=== PATIENT | female | born 1975 | race Caucasian/White ===

== ENCOUNTER 2021-10-02 22:36 | Inpatient (IN) | payer BC, SELFPAY ==
--- NOTE | ~2021-10-02 | XR_ITS ---
EXAMINATION: XR ERCP DATE: 10/04/2021 15:03 INDICATION: Gallstones. TECHNIQUE: 2 spot fluoroscopic images of the right upper quadrant were obtained during endoscopic ret rograde cholangiopancreatography (ERCP). Fluoroscopy exposure time was 91. COMPARISON: MRCP 10/03/2021 FINDINGS: The endoscope is in the second portion of the duodenum. There is contrast opacification of the biliary tree with an inflated balloon. No visible choledocholithiasis. There are surgical clips f rom cholecystectomy. IMPRESSION: 1. No visible choledocholithiasis. Please refer to the ERCP procedure note for additional details. Reviewed, dictated and finalized at location A. GATION PARALEGAL
--- NOTE | ~2021-10-02 | CT_ITS ---
EXAMINATION: CT abdomen pelvis w con DATE: 10/03/2021 00:41 INDICATION: Left lower quadrant pain TECHNIQUE: Computed tomography (CT) of the abdomen and pelvis was performed with 100 cc Omnipaque 350 intravenous contrast. The dose-length product was 749.41 mGy-cm. Automated exposure control and iter ative reconstruction technique were employed. COMPARISON: None. FINDINGS: Lung bases are unremarkable. No significant pleural or pericardial effusion. There is a foc al soft tissue nodule anterior to the sternum to the right, possibly enlarged lymph node, image 1. St atus post cholecystectomy with expected prominence of the bile ducts. The spleen, pancreas, adrenal g lands and kidneys are unremarkable. Normal appendix. Nonobstructive bowel gas pattern. Small amount o f free fluid in the pelvis. Colonic diverticulosis without evidence for diverticulitis. Nonobstructiv e bowel gas pattern. No abdominal lymphadenopathy. Bladder wall is mildly prominent, although underdi stended. No significant bone or joint abnormality. IMPRESSION: 1. Mild bladder wall prominence, although not well distended. Consider cystitis in the appropriate cl inical setting. 2: Focal soft tissue nodule anterior to the sternum on the right measuring 11 mm, possibly enlarged i nternal mammary lymph node. Recommend correlation with diagnostic bilateral mammogram and ultrasound. Reviewed, dictated and finalized at location D. SPORTATION AIDE IMPRESSION: 1. Mild bladder wall prominence, although not well distended. Consider cystitis in the appropriate clinical setting. 2: Focal soft tissue nodule anterior to the sternum on the right measuring 11 m m, possibly enlarged internal mammary lymph node. Recommend correlation with di agnostic bilateral mammogram and ultrasound.
--- NOTE | ~2021-10-02 | US_ITS ---
EXAMINATION: US right upper quadrant EXAM DATE: 10/03/2021 08:12 INDICATION: Elevated liver enzymes. TECHNIQUE: Multiple grayscale and Doppler images of the abdomen right upper quadrant were obtained (b y a technologist who performed the scan) and subsequently reviewed. There is no prior study for abilio casey. FINDINGS: The pancreatic head and body are normal in appearance. The pancreatic tail is not visualized. Mildl y echogenic liver parenchyma, hepatic steatosis. There is hyperechoic region measuring [address] in the liver anteriorly, which has no correlate on CT and could be fat adjacent to the falciform ligament. There is no evidence of intrahepatic biliary duct dilation. Portal venous flow was seen i n the hepatopedal, normal direction and has normal Doppler waveform. No right-sided hydronephrosis. Common bile duct measures 4 mm, which is normal. The gallbladder fossa is unremarkable. IMPRESSION: 1. Mild hepatic steatosis. Reviewed, dictated and finalized at location A. ELAND MANAGEMENT SPECIALIST IMPRESSION: 1. Mild hepatic steatosis.
--- NOTE | ~2021-10-02 | MR_ITS ---
EXAMINATION: MR MRCP wo/w con/w 3D wo ind DATE: 10/03/2021 17:16 INDICATION: Abnormal liver function tests. TECHNIQUE: Magnetic resonance imaging (MRI) of the abdomen was performed without and with 16 mL Multi Inés intravenous contrast. Sequences included coronal T2-weighted FS FSE, coronal T2-weighted FSE, a xial T1-weighted LAVA, coronal FS FIESTA, axial dual-echo T1-weighted SPGR, coronal lava-FLEX, sagitt al T2-weighted FSE, axial T2-weighted FSE, and axial DWI. Thick-slab T2-weighted FSE images were obta ined for magnetic resonance cholangiopancreatography (MRCP). Maximum intensity projection 3-D reconst ructions of the volumetric data were created by the technologist. Postcontrast sequences included cor onal LAVA-flex and time course of axial T1-weighted LAVA. COMPARISON: Abdomen ultrasound 10/03/2021, CT abdomen and pelvis 10/03/2021 FINDINGS: ABDOMEN MRI: There is diffuse hepatic steatosis. The gallbladder is absent. There is fat stranding an d fluid around the pancreas, consistent with pancreatitis. There is enhancement of the pancreas throu ghout. The adrenal glands and kidneys are normal. There are no dilated loops of bowel. There is a sma ll volume of ascites. ABDOMEN MRCP: The common duct is normal and measures 8 mm. No choledocholithiasis. IMPRESSION: 1. Acute interstitial pancreatitis. 2. No choledocholithiasis. 3. Diffuse hepatic steatosis. Reviewed, dictated and finalized at location A. RUCTOR BUSINESS EDUCATION
[2021-10-02 22:40] VITALS: BP 137/87; PULSE 80; RESP 18; TEMP 36.4; O2SAT 100
[2021-10-02] MEDS: KETOROLAC 30 MG/ML VIAL (*BKC) IV PUSH (23:38)
[2021-10-02] MEDS: ONDANSETRON INJ 4 MG/2 ML VIAL IV PUSH (23:39)
--- NOTE | 2021-10-02 23:40 | ED.GENADULT ---
HPI - General Adult General Chief complaint: Abdominal Pain Stated complaint: chest pain Time Seen by Provider: 10/02/21 23:12 History of Present Illness HPI narrative: Patient is a 46-year-old male who presents the emergency department with chief complaint of epigastric pain. Patient reports he had prior history of a cholecystectomy reports he started having pain radiating to her back reports is not improved by anything and reports that it is not worsened by anything. Related Data Allergies Allergy/AdvReac Type Severity Reaction Status Date / Time clindamycin AdvReac Unconscious Verified 10/02/21 22:45 Review of Systems Review of Systems: A 10 system review of systems was completed on the patient and is negative except for what is stated in the HPI. Nursing and ancillary documentation was reviewed. Exam Narrative: GENERAL: Well-appearing, well-nourished, and in no acute distress. HEAD: Normocephalic, atraumatic. EYES: PERRLA and EOMI. ENT: Nares clear, no rhinorrhea or epistaxis. Mucous membranes moist. NECK: Supple. CHEST: Clear to auscultation. No respiratory distress. HEART: Regular rate and rhythm. No murmur heard. Normal peripheral pulses. ABDOMEN: Soft, nontender, nondistended, normal active bowel sounds. EXTREMITIES: Normal range of motion. No edema. SKIN: Warm, dry, no rash. NEURO: No focal deficits. Alert and oriented x3. PSYCH: Normal mood and affect. Course Vital Signs Vital signs: Vital Signs Temperature 36.4 C L 10/02/21 22:40 Pulse Rate 80 10/02/21 22:40 Respiratory Rate 18 10/02/21 22:40 Blood Pressure 137/87 10/02/21 22:40 Pulse Oximetry 100 10/02/21 22:40 Temperature 36.4 C L 10/02/21 22:40 Pulse Rate 80 10/02/21 22:40 Respiratory Rate 18 10/02/21 22:40 Blood Pressure 137/87 10/02/21 22:40 Pulse Oximetry 100 10/02/21 22:40 Medical Decision Making Vital Signs Vital Signs: Vital Signs Temperature 36.4 C L 10/02/21 22:40 Pulse Rate 80 10/02/21 22:40 Respiratory Rate 18 10/02/21 22:40 Blood Pressure 137/87 10/02/21 22:40 Pulse Oximetry 100 10/02/21 22:40 Temperature 36.4 C L 10/02/21 22:40 Pulse Rate 80 10/02/21 22:40 Respiratory Rate 18 10/02/21 22:40 Blood Pressure 137/87 10/02/21 22:40 Pulse Oximetry 100 10/02/21 22:40 Lab Data Result diagrams: 10/03/21 00:30 10/02/21 23:37 Labs: Lab Results 10/02/21 10/02/21 10/02/21 Range/Units 23:37 23:37 23:49 WBC (4.5-10.0) K/mm3 RBC (4.2-5.4) M/mm3 Hgb (12.0-15.0) g/dL Hct (37.0-47.0) % MCV (80-100) fl MCH (26-34) pg MCHC (32-36) g/dl RDW (11.5-14.5) % Plt Count (150-375) k/mm3 MPV (7.4-10.4) fl Immature Gran % (Auto) (0-0.5) % Neut % (Auto) (45.5-73.1) % Lymph % (Auto) (18.3-44.2) % [place] % (Auto) (2.6-8.5) % Eos % (Auto) (0-4.4) % Baso % (Auto) (0.2-1.2) % Lymph # (Auto) (0.9-3.2) K/mm3 [place] # (Auto) (0.1-0.6) K/mm3 Eos # (Auto) (0-0.3) K/mm3 Baso # (Auto) (0.0-0.1) K/mm3 Abs Immat Gran (auto) (0.00-0.031) K/mm3 Absolute Neuts (auto) (1.3-6.7) K/mm3 Absolute Nucleated RBC (0.0-0.012) K/mm3 Nucleated RBC % (0.0-0.2) % Sodium 136 L (137-145) mmol/L Potassium 4.0 (3.4-5.0) mmol/L Chloride 101 (98-107) mmol/L Carbon Dioxide 25 (22-30) mmol/L Anion Gap 10 (8-16) mmol/L BUN 10 (7-17) mg/dL Creatinine 0.70 (0.7-1.0) mg/dL Estim Creat Clear Calc 90 ml/min Estimated GFR > 60 (59 - ) Glucose 111 H (65-110) mg/dL Lactic Acid 1.0 (0.7-2.1) mmol/L Calcium 9.7 (8.4-10.2) mg/dL Total Bilirubin 1.9 H (0.2-1.3) mg/dL AST 530 H (14-36) U/L ALT 436 H (4-35) U/L Alkaline Phosphatase 161 H (38-126) U/L Total Protein 8.0 (6.3-8.2) g/dL Albumin 4.7 (3.5-5.1) g/dL Lipase 5641 H (23-300) U/L Urine Color Yellow (Yellow) Urine Tiffanie
[2021-10-02] MEDS: SODIUM CHLORIDE 0.9% IV 1,000 ML 999 ML IV CONT (23:43)
[2021-10-03] VITALS (7 sets, daily range): BP systolic 112–134; BP diastolic 61–71; PULSE 71–93; RESP 14–18; TEMP 36.6–37.1; O2SAT 96–100; BMI 31.2; BMI 31.4
[2021-10-03 00:14] LABS: Alanine Aminotransferase 436 U/L (4-35); Albumin Level 4.7 g/dL (3.5-5.1); Alkaline Phosphatase 161 U/L (38-126); Anion Gap 10 mmol/L (8-16); Aspartate Amino Transferase 530 U/L (14-36); Bilirubin,Total 1.9 mg/dL (0.2-1.3); Blood Urea Nitrogen 10 mg/dL (7-17); Calcium 9.7 mg/dL (8.4-10.2); Carbon Dioxide 25 mmol/L (22-30); Chloride 101 mmol/L (98-107); Estimated CRCL calculation 90 ml/min; Estimated Glomerular Filt Rate > 60; Glucose 111 mg/dL (65-110); Sodium 136 mmol/L (137-145)
[2021-10-03 00:32] LABS: Lipase 5641 U/L (23-300)
[2021-10-03 00:39] LABS: Basophils Percent Auto 0.4 % (0.2-1.2); Eosinophils Absolute Auto 0.1 K/mm3 (0-0.3); Eosinophils Percent Auto 0.7 % (0-4.4); Hematocrit 36.8 % (37.0-47.0); Hemoglobin 12.7 g/dL (12.0-15.0); Immature Granulocyte Absolute 0.01 K/mm3 (0.00-0.031); Immature Granulocyte Percent A 0.1 % (0-0.5); Lymphocytes Absolute Auto 1.04 K/mm3 (0.9-3.2); Lymphocytes Percent Auto 14.1 % (18.3-44.2); Mean Corpuscular HGB Conc 34.5 g/dl (32-36); Mean Corpuscular Hemoglobin 30.2 pg (26-34); Mean Corpuscular Volume 87.4 fl (80-100); Mean Platelet Volume 9.6 fl (7.4-10.4); Monocytes Absolute Auto 0.6 K/mm3 (0.1-0.6); Monocytes Percent Auto 8.7 % (2.6-8.5); Neutrophils Absolute Auto 5.6 K/mm3 (1.3-6.7); Platelet Count Result 275 k/mm3 (150-375); Red Blood Count 4.21 M/mm3 (4.2-5.4); Red Cell Distribution Width 12.3 % (11.5-14.5); White Blood Count 7.4 K/mm3 (4.5-10.0)
[2021-10-03 00:48] LABS: Add Urine Microscopic? YES; Appearance Urine Clear (Clear); Bacteria Urine Trace /hpf; Bilirubin Urine Negative (Negative); Blood Urine Negative (Negative); Color Urine Yellow (Yellow); Glucose Urine UA Negative (Negative); Ketones Urine Negative (Negative); Leukocyte Esterase Ur Negative LEU/UL (Negative); Mucus Urine Rare /lpf; Nitrate Urine Negative (Negative); Protein Urine Negative (Negative); RBC Urine 0-2 /hpf (0-2); Specific Grav Ur 1.008 (1.001-1.035); Squamous Epithelial Cell Urine Few /hpf (Few); WBC Urine 0-3 /hpf
[2021-10-03] MEDS: MORPHINE SULFATE (*CRX) 4 MG/ML INJ IV PUSH ×3 (02:34→16:06)
[2021-10-03] MEDS: SODIUM CHLORIDE 0.9% IV 1,000 ML 125 ML IV CONT ×3 (02:35→16:12)
[2021-10-03 07:29] LABS: Alanine Aminotransferase 623 U/L (4-35); Albumin Level 4.2 g/dL (3.5-5.1); Alkaline Phosphatase 151 U/L (38-126); Aspartate Amino Transferase 700 U/L (14-36); Bilirubin Direct 0.7 mg/dL (0-0.3); Bilirubin,Total 2.9 mg/dL (0.2-1.3)
[2021-10-03] MEDS: ONDANSETRON INJ 4 MG/2 ML VIAL IV PUSH (07:45)
--- NOTE | 2021-10-03 08:00 | PM.IMHP ---
H&P: HPI History of Present Illness Date/Time: 10/03/21 0800 Chief Complaint: Abdominal pain accompanied with nausea vomiting Narrative: Patient is a 46-year-old female with a past medical history of cholecystectomy, gallstones, pancreatitis who presented the ED with severe epigastric pain. Patient stated that it started on Saturday after she had some Armenian food. Patient thought that it was acid reflux and she took Tums however did not have any relief. On Saturday she became weak and a little bit. Her meal on Saturday consisted of toast with chicken soup and lots of water. Saturday she called her PCP that they will be able to get her in until if her GI would not be able to get her in until October 26. She came to ED because her epigastric pain was severe and radiating throughout the abdomen. Patient stated that nothing was helping her at this time. She currently rates her pain as 7/10. She was actively vomiting as I walked into the room. Patient stated that she had her gallbladder taken out 3 years ago and she has been battling this ever since. She did say that she has had pancreatitis in the past however it never hurt like this so she probably uneven when she had pancreatitis at that time. Patient had her last meal at 6:00 p.m. yesterday which was vegetables based. Patient stated that it was hard to breathe however she said the poly from the vomiting. She denies any urinary dysfunction along with chest pain, she wets, fevers, chills, lightheadedness, weakness, dizziness, fatigue, numbness and tingling. Patient does report having diarrhea for the last [address] showed Mild bladder wall prominence, although not well distended. Consider cystitis in the appropriate clinical setting. Focal soft tissue nodule anterior to the sternum on the right measuring 11 mm, possibly enlarged internal mammary lymph node. Recommend correlation with diagnostic bilateral mammogram and ultrasound. Liver enzymes are elevated 700/623 and total bilirubin is 2.9. lipase is also elevated at 5641. Patient is being admitted to the hospitalist service, inpatient status. Review of Systems Review of Systems: All systems reviewed & are unremarkable except as noted in HPI and below PMFSH Past Medical History Medical History Gall stone GERD (gastroesophageal reflux disease) Pancreatitis Surgical History Surgical History S/P cholecystectomy Family History Family History Mother Lung cancer Other Diabetes mellitus nieces Social History Social History Social History: Patient lives at home with her and 1 child who is a girl. Patient works for [employer] and has 3 dogs as pets. Patient's graham will be her surrogate. Patient would like to be a full code. Smoking status: Current some day smoker Tobacco type: e-cigarettes/vaping Second hand tobacco smoke exposure: No Alcohol intake: current Drinks per week: 2 Alcohol use details: Beer with friends socially Substance use: never Substance use type: does not use Living arrangements: with family Occupation/Education: occupation Additional occupation/education comments: [employer] Gender identity (if verbalized by the patient): Female Sexual Orientation (if Verbalized by the Patient): Straight or Heterosexual Spiritual care concerns: No Agree to blood products: Yes Meds Home Medications and Allergies Home Medications Medication Instructions Recorded Confirmed Type No Home Medications 10/03/21 10/03/21 History Allergies Allergy/AdvReac Type Severity Reaction Status Date / Time clindamycin AdvReac Unconscious Verified 10/02/21 22:45 Vital Signs Vital Signs - 24 hr 10/02/21 22:40 10/03/21 03:34 1
[2021-10-03 08:22] LABS: Glucose Point of Care 148 mg/dl (65-105)
[2021-10-03] MEDS: PANTOPRAZOLE SODIUM IV 40 MG VIAL IV PUSH (08:33)
--- NOTE | 2021-10-03 11:04 | PC.NURSE ---
On 10/03/21, the student, Adriane Vail[ ], provided care and completed [facility] documentation on this patient. I have reviewed the student's documentation and agree with the findings.
--- NOTE | 2021-10-03 14:31 | WPDGICN ---
Assessment and Plan Assessment and plan (1) Acute pancreatitis: Qualifiers: Acute pancreatitis complication: unspecified Pancreatitis type: unspecified pancreatitis type Qualified Code(s): K85.90 - Acute pancreatitis without necrosis or infection, unspecified Code(s): K85.90 - Acute pancreatitis without necrosis or infection, unspecified Status: Acute Assessment and Plan: given her history of gallstones on prior common bile duct stones, I suspect that she has common bile duct stones and/or sludge at the minimum causing gallstone pancreatitis. We discussed ERCP appear explained the procedure. Explain the possible complications such as bleeding or perforation or worsening pancreatitis or even the possibility that surgery could be necessary . I was going to try to get her procedure scheduled for today. I was just notified that anesthesia does not have the staff to do the procedure today (2) Transaminitis: Code(s): R74.01 - Elevation of levels of liver transaminase levels Status: Acute Assessment and Plan: I am fairly certain that these levels are due to choledocholithiasis. I would not explain this level of enzyme elevation with hepatic steatosis, and given the elevated bilirubin, she almost certainly has common bile duct calculi. GI Consult Note Consult date/time: 10/03/21 14:31 HPI: Ty Arriola is a 46 year old female who was admitted yesterday with severe abdominal pain and found to have pancreatitis. Her lipase was over 5000. She states she had pancreatitis about 3 years ago at the time that she was found have gallstones. His far she recalls she 1st was found to have gallstones and was told that she had some her bile duct. She believes that she had an ERCP and stones were removed. She also had a cholecystectomy. After that she was told that some of the stones could not be removed and that she may well have another attack. She does not recall having a stent placed. There is no history of liver disease. The family history is relevant only in that her father had his gallbladder removed. She does not drink alcohol regularly. Her alkaline phosphatase was elevated 161 her AST which was 530 yesterday is now 700. Likewise her bilirubin has increased from 1.9-2.9. CT scan of the abdomen does not show biliary dilatation or other significant abnormalities. An MRCP was ordered but cannot be done because the MRI machine is broken Review of Systems Review of Systems: All systems reviewed & are unremarkable except as noted in HPI and below PMFSH Past Medical History Medical History Gall stone GERD (gastroesophageal reflux disease) Pancreatitis Surgical History Surgical History S/P cholecystectomy Family History Family History Mother Lung cancer Other Diabetes mellitus nieces Social History Social History Social History: Patient lives at home with her and 1 child who is a girl. Patient works for [employer] and has 3 dogs as pets. Patient's graham will be her surrogate. Patient would like to be a full code. Smoking status: Current some day smoker Tobacco type: e-cigarettes/vaping Second hand tobacco smoke exposure: No Alcohol intake: current Drinks per week: 2 Alcohol use details: Beer with friends socially Substance use: never Substance use type: does not use Living arrangements: with family Occupation/Education: occupation Additional occupation/education comments: [employer] Gender identity (if verbalized by the patient): Female Sexual Orientation (if Verbalized by the Patient): Straight or Heterosexual Spiritual care concerns: No Agree to blood products: Yes Meds Home Medicatio
--- NOTE | 2021-10-03 15:33 | PC.NURSE ---
On 10/03/21, the student, [Didi Taylor ], provided care and completed [employer] documentation on this patient. I have reviewed the student's documentation and agree with the findings.
[2021-10-03 15:45] LABS: INR 0.9; Prothrombin Time 12.2 Seconds (11.1-14.7)
[2021-10-04] VITALS (12 sets, daily range): BP systolic 105–153; BP diastolic 57–100; PULSE 77–102; RESP 16–33; TEMP 36.5–37.3; O2SAT 95–100
[2021-10-04] MEDS: SODIUM CHLORIDE 0.9% IV 1,000 ML 125 ML IV CONT ×2 (03:13→17:34)
[2021-10-04 06:32] LABS: Basophils Percent Auto 0.2 % (0.2-1.2); Eosinophils Absolute Auto 0.1 K/mm3 (0-0.3); Eosinophils Percent Auto 1.1 % (0-4.4); Hematocrit 35.8 % (37.0-47.0); Hemoglobin 11.9 g/dL (12.0-15.0); Immature Granulocyte Absolute 0.02 K/mm3 (0.00-0.031); Immature Granulocyte Percent A 0.2 % (0-0.5); Lymphocytes Absolute Auto 0.83 K/mm3 (0.9-3.2); Lymphocytes Percent Auto 9.1 % (18.3-44.2); Mean Corpuscular HGB Conc 33.2 g/dl (32-36); Mean Corpuscular Hemoglobin 29.8 pg (26-34); Mean Corpuscular Volume 89.5 fl (80-100); Mean Platelet Volume 9.5 fl (7.4-10.4); Monocytes Absolute Auto 0.5 K/mm3 (0.1-0.6); Monocytes Percent Auto 5.5 % (2.6-8.5); Neutrophils Absolute Auto 7.6 K/mm3 (1.3-6.7); Neutrophils Percent Auto 83.9 % (45.5-73.1); Platelet Count Result 269 k/mm3 (150-375); Red Cell Distribution Width 12.7 % (11.5-14.5); White Blood Count 9.1 K/mm3 (4.5-10.0)
[2021-10-04 07:00] LABS: Alanine Aminotransferase 431 U/L (4-35); Albumin Level 3.9 g/dL (3.5-5.1); Alkaline Phosphatase 133 U/L (38-126); Anion Gap 7 mmol/L (8-16); Aspartate Amino Transferase 176 U/L (14-36); Blood Urea Nitrogen 4 mg/dL (7-17); Calcium 8.3 mg/dL (8.4-10.2); Carbon Dioxide 22 mmol/L (22-30); Chloride 105 mmol/L (98-107); Estimated CRCL calculation 105 ml/min; Estimated Glomerular Filt Rate > 60; Glucose 101 mg/dL (65-110); Magnesium 1.8 mg/dL (1.6-2.3); Potassium 3.6 mmol/L (3.4-5.0); Sodium 134 mmol/L (137-145)
[2021-10-04 07:09] LABS: Lipase 2030 U/L (23-300)
[2021-10-04 07:43] LABS: Hepatitis B Surface Antigen Negative (Negative)
[2021-10-04 07:48] LABS: HAV RESULT Negative (Negative); Hepatitis B Core IgM Result Negative (Negative)
[2021-10-04 08:00] LABS: Hepatitis C Virus Antibody Negative (Negative)
--- NOTE | 2021-10-04 08:14 | WPDANESEPPF ---
Anes - Initial Pre Proc Eval Procedure: Operation Date: 10/04/21 14:00 Proposed Procedures p Endoscopic Retro Cholangiopancreatogram - Brendan Faustin MD Date/Time: 10/04/21 08:14 Surgeon: Ko Olmedo MD Pre Op Diagnosis: Acute Pancreatitis Patient Data Age: 46 Gender: F Height: 1.63 m Weight: 83 kg Last Vital Signs Temp 37.3 C 10/04/21 05:49 Pulse 101 H 10/04/21 05:49 Resp 18 10/04/21 05:49 BP 113/61 10/04/21 05:49 Pulse Ox 95 10/04/21 05:49 Allergies Allergy/AdvReac Type Severity Reaction Status Date / Time clindamycin AdvReac Unconscious Verified 10/04/21 13:05 Home Medications Medication Instructions Recorded Confirmed Type No Home Medications 10/03/21 10/03/21 History Laboratory Tests 10/03/21 10/03/21 10/03/21 07:53 15:10 15:13 WBC RBC Hgb Hct MCV MCH MCHC RDW Plt Count MPV Immature Gran % (Auto) Neut % (Auto) Lymph % (Auto) [place] % (Auto) Eos % (Auto) Baso % (Auto) Lymph # (Auto) [place] # (Auto) Eos # (Auto) Baso # (Auto) Abs Immat Gran (auto) Absolute Neuts (auto) Absolute Nucleated RBC Nucleated RBC % PT 12.2 Seconds Seconds (11.1-14.7) INR 0.9 Sodium Potassium Chloride Carbon Dioxide Anion Gap BUN Creatinine Estim Creat Clear Calc Estimated GFR Glucose POC Capillary Glucose 148 mg/dl H mg/dl (65-105) Calcium Magnesium Total Bilirubin Direct Bilirubin AST ALT Alkaline Phosphatase Total Protein Albumin Lipase Hepatitis A IgM Ab Negative (Negative) Hep Bs Antigen Negative (Negative) Hep B Core IgM Ab Negative (Negative) Hepatitis C Ab Screen Negative (Negative) 10/04/21 10/04/21 05:56 05:56 WBC 9.1 K/mm3 K/mm3 (4.5-10.0) RBC 4.00 M/mm3 L M/mm3 (4.2-5.4) Hgb 11.9 g/dL L g/dL (12.0-15.0) Hct 35.8 % L % (37.0-47.0) MCV 89.5 fl fl (80-100) MCH 29.8 pg pg (26-34) MCHC 33.2 g/dl g/dl (32-36) RDW 12.7 % % (11.5-14.5) Plt Count 269 k/mm3 k/mm3 (150-375) MPV 9.5 fl fl (7.4-10.4) Immature Gran % (Auto) 0.2 % % (0-0.5) Neut % (Auto) 83.9 % H % (45.5-73.1) Lymph % (Auto) 9.1 % L % (18.3-44.2) [place] % (Auto) 5.5 % % (2.6-8.5) Eos % (Auto) 1.1 % % (0-4.4) Baso % (Auto) 0.2 % % (0.2-1.2) Lymph # (Auto) 0.83 K/mm3 L K/mm3 (0.9-3.2) [place] # (Auto) 0.5 K/mm3 K/mm3 (0.1-0.6) Eos # (Auto) 0.1 K/mm3 K/mm3 (0-0.3) Baso # (Auto) 0.0 K/mm3 K/mm3 (0.0-0.1) Abs Immat Gran (auto) 0.02 K/mm3 K/mm3 (0.00-0.031) Absolute Neuts (auto) 7.6 K/mm3 H K/mm3 (1.3-6.7) Absolute Nucleated RBC 0.0 K/mm3 K/mm3 (0.0-0.012) Nucleated RBC % 0.0 % % (0.0-0.2) PT INR Sodium 134 mmol/L L mmol/L (137-145) Potassium 3.6 mmol/L mmol/L (3.4-5.0) Chloride 105 mmol/L mmol/L (98-107) Carbon Dioxide 22 mmol/L mmol/L (22-30) Anion Gap 7 mmol/L L mmol/L (8-16) BUN 4 mg/dL L D mg/dL (7-17) Creatinine 0.60 mg/dL L mg/dL (0.7-1.0) Estim Creat Clear Calc 105 ml/min ml/min Estimated GFR > 60 (59 - ) Glucose 101 mg/dL mg/dL (65-110) POC Capillary Glucose Calcium 8.3 mg/dL L mg/dL (8.4-10.2) Magnesium 1.8 mg/dL mg/dL (1.6-2.3) Total Bilirubin 2.0 m
--- NOTE | 2021-10-04 10:00 | PM.IMPN ---
Progress Note: A&P Assessment and Plan (1) Acute pancreatitis: Qualifiers: Acute pancreatitis complication: unspecified Pancreatitis type: unspecified pancreatitis type Qualified Code(s): K85.90 - Acute pancreatitis without necrosis or infection, unspecified Code(s): K85.90 - Acute pancreatitis without necrosis or infection, unspecified Status: Acute Assessment and Plan: Lipase trending down [address] shows normal pancreas NPO status at this time Morphine IV p.r.n. for pain Zofran 4 mg IV q.4 for nausea vomiting Sodium chloride 125 mL/hour Protonix 40 mg IV b.i.d. Will get a GI consult MRCP showed acute interstitial pancreatitis, no choledocholithiasis, diffuse hepatic steatosis ERCP scheduled for today (2) Transaminitis: Code(s): R74.01 - Elevation of levels of liver transaminase levels Status: Acute Assessment and Plan: Liver enzymes elevated AST/ALT 700/623 alk phos 151 on admission Today AST/ALT 176/431 alk phos 133 Right upper quadrant ultrasound mild hepatic steatosis hepatitis panel negative GI consult thank you for your recommendations Trend labs Labs in the a.m. Subjective Date/time seen: 10/04/21 10:00 Interval history: Date/Time: 10/03/21 0800 Narrative: Patient is a 46-year-old female with a past medical history of cholecystectomy, gallstones, pancreatitis who presented the ED with severe epigastric pain. Patient stated that it started on Saturday after she had some [place] food. Patient thought that it was acid reflux and she took Tums however did not have any relief. On Saturday she became weak and a little bit. Her meal on Saturday consisted of toast with chicken soup and lots of water. Saturday she called her PCP that they will be able to get her in until if her GI would not be able to get her in until October 26. She came to ED because her epigastric pain was severe and radiating throughout the abdomen. Patient stated that nothing was helping her at this time. She currently rates her pain as 7/10. She was actively vomiting as I walked into the room. Patient stated that she had her gallbladder taken out 3 years ago and she has been battling this ever since. She did say that she has had pancreatitis in the past however it never hurt like this so she probably uneven when she had pancreatitis at that time. Patient had her last meal at 6:00 p.m. yesterday which was vegetables based. Patient stated that it was hard to breathe however she said the poly from the vomiting. She denies any urinary dysfunction along with chest pain, she wets, fevers, chills, lightheadedness, weakness, dizziness, fatigue, numbness and tingling. Patient does report having diarrhea for the last [address] showed Mild bladder wall prominence, although not well distended. Consider cystitis in the appropriate clinical setting. Focal soft tissue nodule anterior to the sternum on the right measuring 11 mm, possibly enlarged internal mammary lymph node. Recommend correlation with diagnostic bilateral mammogram and ultrasound. Liver enzymes are elevated 700/623 and total bilirubin is 2.9. lipase is also elevated at 5641. Date/Time: 10/04/21 1000 She is feeling a lot better today. She stated that her abdomen is not as sore as it was. She currently rates her pain a 5/10/. She stated that the pain is mostly epigastric but then does disperse and creates generalized abdominal pain. She did state that she has not had any pain medications since yesterday. Educated her about her diet and she requested to see the chemical research engineer. She denies chest pain, shortness of breath, nausea, vomiting, sweats, fevers, chills, abdominal pain, urinary dysfunction. She also stated that her anxiety is better. Review of Systems Review of Systems: All systems reviewed & are unremarkable except as noted in HPI and below Exam Const: General: cooperative, well devel
[2021-10-04] MEDS: PANTOPRAZOLE SODIUM IV 40 MG VIAL IV PUSH (10:35)
[2021-10-04] MEDS: INDOMETHACIN 50 MG SUPP.RECT 100 MG RECTAL (14:11)
[2021-10-04] MEDS: LACTATED RINGERS 1,000 ML 150 ML IV CONT (15:06)
[2021-10-05 04:34] VITALS: BP 108/67; PULSE 104; RESP 18; TEMP 37.2; O2SAT 95
[2021-10-05] MEDS: SODIUM CHLORIDE 0.9% IV 1,000 ML 125 ML IV CONT (06:36)
[2021-10-05 06:57] LABS: Basophils Percent Auto 0.5 % (0.2-1.2); Eosinophils Absolute Auto 0.1 K/mm3 (0-0.3); Eosinophils Percent Auto 1.6 % (0-4.4); Hematocrit 31.6 % (37.0-47.0); Hemoglobin 10.6 g/dL (12.0-15.0); Immature Granulocyte Absolute 0.02 K/mm3 (0.00-0.031); Immature Granulocyte Percent A 0.2 % (0-0.5); Lymphocytes Absolute Auto 1.23 K/mm3 (0.9-3.2); Lymphocytes Percent Auto 14.7 % (18.3-44.2); Mean Corpuscular HGB Conc 33.5 g/dl (32-36); Mean Corpuscular Hemoglobin 29.4 pg (26-34); Mean Corpuscular Volume 87.5 fl (80-100); Mean Platelet Volume 9.3 fl (7.4-10.4); Monocytes Absolute Auto 0.6 K/mm3 (0.1-0.6); Monocytes Percent Auto 7.4 % (2.6-8.5); Neutrophils Absolute Auto 6.3 K/mm3 (1.3-6.7); Neutrophils Percent Auto 75.6 % (45.5-73.1); Platelet Count Result 217 k/mm3 (150-375); Red Blood Count 3.61 M/mm3 (4.2-5.4); Red Cell Distribution Width 12.5 % (11.5-14.5); White Blood Count 8.4 K/mm3 (4.5-10.0)
[2021-10-05 07:22] LABS: Alanine Aminotransferase 251 U/L (4-35); Albumin Level 3.5 g/dL (3.5-5.1); Alkaline Phosphatase 108 U/L (38-126); Anion Gap 6 mmol/L (8-16); Aspartate Amino Transferase 62 U/L (14-36); Bilirubin,Total 0.8 mg/dL (0.2-1.3); Blood Urea Nitrogen 3 mg/dL (7-17); Calcium 8.1 mg/dL (8.4-10.2); Carbon Dioxide 25 mmol/L (22-30); Chloride 105 mmol/L (98-107); Estimated CRCL calculation 105 ml/min; Estimated Glomerular Filt Rate > 60; Glucose 96 mg/dL (65-110); Lipase 182 U/L (23-300); Potassium 3.5 mmol/L (3.4-5.0); Sodium 136 mmol/L (137-145)
--- NOTE | 2021-10-05 07:23 | WPDGIPROGNO ---
Progress Note: A&P Assessment and Plan (1) Acute pancreatitis: Qualifiers: Acute pancreatitis complication: unspecified Pancreatitis type: unspecified pancreatitis type Qualified Code(s): K85.90 - Acute pancreatitis without necrosis or infection, unspecified Code(s): K85.90 - Acute pancreatitis without necrosis or infection, unspecified Status: Acute Assessment and Plan: 10/03 given her history of gallstones on prior common bile duct stones, I suspect that she has common bile duct stones and/or sludge at the minimum causing gallstone pancreatitis. We discussed ERCP appear explained the procedure. Explain the possible complications such as bleeding or perforation or worsening pancreatitis or even the possibility that surgery could be necessary . I was going to try to get her procedure scheduled for today. I was just notified that anesthesia does not have the staff to do the procedure today. her ERCP revealed a tight and Reich a, probably somewhat fibrotic from her previous ERCP several years ago at [facility]. At any rate few small tiny calculi were produced With the balloon sweep, and a good flow bile after sphincterotomy. 12/2 lipase has come down to normal and she feels good. I think that we can advance her diet and probably send her home today. I cautioned her to avoid fatty foods for least the next 2 weeks and also to avoid all alcohol for the next 2-3 weeks and then afterwards only use in moderation. She states she does not drink very often anyway (2) Transaminitis: Code(s): R74.01 - Elevation of levels of liver transaminase levels Status: Acute Assessment and Plan: 10/03 I am fairly certain that these levels are due to choledocholithiasis. I would not explain this level of enzyme elevation with hepatic steatosis, and given the elevated bilirubin, she almost certainly has common bile duct calculi. 12/2 enzymes are coming down quickly. I do not think there for there is any concern for liver disease Subjective Date/time seen: 10/05/21 07:23 she has minimal pain this morning. Only slight vague abdominal discomfort. There was no increase in pain after her ERCP. She is hungry and would like to eat, tolerating clear liquids well last night Review of Systems Review of Systems: All systems reviewed & are unremarkable except as noted in HPI and below Exam Const: General: cooperative, comfortable and no acute distress Nutritional Appearance: overweight Resp: Auscultation: clear to auscultation bilaterally GI: Inspection: normal to inspection Auscultation: normal bowel sounds Skin: General skin exam: normal color and no jaundice Objective Data Vital Signs Vital Signs: Vital Signs - 24 hr 10/04/21 08:14 10/04/21 13:07 10/04/21 15:08 Temperature 36.9 C 36.5 C 37.1 C Pulse Rate 94 77 102 H Respiratory Rate 16 18 20 Blood Pressure 133/57 L 131/69 153/98 H Pulse Oximetry 96 100 100 10/04/21 15:18 10/04/21 15:28 10/04/21 15:38 Temperature Pulse Rate 93 86 94 Respiratory Rate 33 H 28 H 23 H Blood Pressure 147/100 H 132/98 H 148/85 H Pulse Oximetry 100 98 98 10/04/21 15:48 10/04/21 15:58 10/04/21 16:08 Temperature Pulse Rate 91 82 79 Respiratory Rate 26 H 26 H 22 H Blood Pressure 151/81 H 138/91 H 137/89 Pulse Oximetry 99 99 99 10/04/21 20:00 10/04/21 21:36 10/05/21 04:34 Temperature 37.2 C 37.2 C Pulse Rate 83 83 104 H Respiratory Rate 18 18 18 Blood Pressure 105/67 108/67 Pulse Oximetry 96 96 95 Intake/Output Intake/Output: Intake & Output 10/02/21 10/03/21 10/04/21 10/05/21 23:59 23:59 23:59 23:59 Intake Total 3790 3440 1250 Output Total 1700 400 Balance 3790 1740 850 Meds/Results Medications: Active Medications Generic Name Dose Route Start Last Admin Trade Name Freq PRN Reason Stop Dose Admin Sodium Chloride 1,000 mls @ 125 mls/hr 10/03/21 01:55 10/05/21 06:36 Normal Saline Iv IV CONT 125 mls/hr .Q8H S
--- NOTE | 2021-10-05 08:01 | PM.DS ---
DS: Admitting Diagnosis Discharge Date Date of Service: 10/05/21 0800 Admitting Diagnosis Acute pancreatitis DS: Discharge Diagnosis Discharge Diagnosis (1) Acute pancreatitis: Qualifiers: Acute pancreatitis complication: unspecified Pancreatitis type: unspecified pancreatitis type Qualified Code(s): K85.90 - Acute pancreatitis without necrosis or infection, unspecified Code(s): K85.90 - Acute pancreatitis without necrosis or infection, unspecified Status: Acute Assessment and Plan: Lipase trending down [address] shows normal pancreas NPO status at this time Morphine IV p.r.n. for pain Zofran 4 mg IV q.4 for nausea vomiting Sodium chloride 125 mL/hour Protonix 40 mg IV b.i.d. Will get a GI consult MRCP showed acute interstitial pancreatitis, no choledocholithiasis, diffuse hepatic steatosis ERCP performed sphincterotomy (2) Transaminitis: Code(s): R74.01 - Elevation of levels of liver transaminase levels Status: Acute Assessment and Plan: Liver enzymes elevated AST/ALT 700/623 alk phos 151 on admission Today AST/ALT 62/251 alk phos 108 Right upper quadrant ultrasound mild hepatic steatosis hepatitis panel negative GI consult thank you for your recommendations Trend labs Labs in the a.m. DS: Summary Hospital Course Hospital Course: Patient is a 46-year-old female with a past medical history of gallstones, GERD, pancreatitis who presented to the ED for severe abdominal pain. Patient's liver enzymes were elevated upon admission 700/623 and her lipase was 5641. Right upper quadrant ultrasound found acute pancreatitis. MRCP confirmed acute pancreatitis as well. GI was consulted and took the patient for an ERCP. Patient underwent a Sphincterotomy which did find gallbladder sludge with micro crystallization. Stone destruction was performed. Since admission labs have been trended and her liver enzymes today are 62/251. Lipase is also were 182 today. All the labs have been stable throughout admission. Patient is feeling a lot better today and is able to tolerate a diet. Patient remains afebrile and WBC is at 8.4. GI is recommending a low-fat diet for the next 2 weeks and no alcohol for 2-3 weeks. Patient denies chest pain, shortness of breath, nausea, vomiting, sweats, fevers, chills. Status at Discharge Functional status at discharge: independent ambulation Overall status at discharge: patient is progressing back to baseline Time Spent with Patient Time attestation: Total time spent providing and/or coordinating discharge services: 48 minutes Time spent: Greater than 30 minutes Exam Const: General: cooperative, healthy appearing, comfortable, well developed, alert and awake Nutritional Appearance: well nourished and overweight Orientation/consciousness: oriented to person, oriented to place, oriented to time and patient oriented x3 Limitations: no limitations HENMT: Head: normal to inspection Ears: hearing grossly normal bilaterally General nose exam: Normal external nose present Mouth: Yes Normal oral and palatal mucosa present, Yes lip normal and Yes tongue normal Teeth and gingiva: abnormal tooth and associated gingiva and poor dentition Eyes: General: appearance normal, both eyes and all related structures Pupils: Equal, round and reactive pupils present Neck: Neck: normal visual inspection, full ROM, trachea midline and supple Chest: Chest palpation & inspection: normal inspection of the chest Resp: Effort & Inspection: normal respiratory effort and able to speak in complete sentences Auscultation: clear to auscultation bilaterally Cardio: Jugular venous distension: no JVD Rate: regular rate Rhythm: regular rhythm Heart sounds: S1 normal heart sound present and S2 normal heart sound present Peripheral pulses: Peripheral pulses 2+ throughout GI: Inspection: normal to inspection Auscultation: normal bowel sounds Rectal
[2021-10-05] MEDS: PANTOPRAZOLE 40 MG TABLET PO (10:18)
--- NOTE | 2021-10-05 10:20 | ECG_ITS ---
Measurements Intervals [place] Rate: 87 P: 45 UT: 152 QRS: 21 QRSD: 98 T: -4 QT: 357 QTc: 430 Interpretive Statements SINUS RHYTHM CONSIDER INFERIOR INFARCT, AGE INDETERMINATE BASELINE WANDER- I, II, AVR, AVL, AVF ABNORMAL ECG Electronically Signed On 10-05-2021 11:43:46 JOB ANALYST by Reese Escoto D.O.
--- NOTE | 2021-10-05 10:40 | PCDIET ---
Dietitian consult for low fat diet instruction. See nutritional teaching intervention. Thank you for the consult.
== END 2021-10-05 12:47 | disposition home or self-care (01) | DRG 440 ==
LOC: ANHED 10-03 01:12 → ANH3MEDSUR 10-03 03:22
PROVIDERS: Internal Medicine Gastroenterology; Admitting Provider Internal Medicine; Emergency Provider Emergency Medicine; PCP Family Medicine Sports Medicine; Visit Provider Nurse Practitioner
PROC: 0F798ZZ Dilation of Common Bile Duct, Via Natural or Artificial Opening Endoscopic (ICD-10-PCS; CPT 43260; principal; 2021-10-04 14:00)
DX: K85.90 Acute pancreatitis without necrosis or infection, unspecified (principal); K80.50 Calculus of bile duct without cholangitis or cholecystitis without obstruction; K21.9 Gastro-esophageal reflux disease without esophagitis; R74.01 Elevation of levels of liver transaminase levels; F17.290 Nicotine dependence, other tobacco product, uncomplicated; Z28.21 Immunization not carried out because of patient refusal; Z90.49 Acquired absence of other specified parts of digestive tract
CPT/HCPCS: 36415; 74177; 74183; 74329; 76376; 76705; 80053; 80074; 80076; 81001; 81025; 82248; 82948; 83605; 83690; 83735; 85025; 85610; 93005; 96361; 96374; 96375; 96376; 99285; A9270; A9577; C9113; G0378; J0330; J1885; J2270; J2405; J2543; J2704; J2710; J7030; J7120; Q9966; Q9967

== ENCOUNTER 2022-05-23 01:38 | Day surgery (SDC) | payer BC, SELFPAY ==
[2022-05-11 10:39] VITALS: BMI 32.4
--- NOTE | 2022-05-22 18:33 | PM.HPGS ---
History of Present Illness History of Present Illness Consent: Risks, benefits, and alternatives have been discussed and questions answered. Patient agrees to proceed with procedure. Chief complaint: positive cologuard Narrative: Ty Mc is a 47 year old female Referred for colon cancer screening. Cologuard test was positive. Review of Systems Review of Systems: All systems reviewed & are unremarkable except as noted in HPI and below PMFSH Past Medical History Medical History Gall stone GERD (gastroesophageal reflux disease) Pancreatitis Surgical History Surgical History S/P cholecystectomy Family History Family History Mother Lung cancer Other Diabetes mellitus nieces Social History Social History Social History: Patient lives at home with her and 1 child who is a girl. Patient works for [employer] and has 3 dogs as pets. Patient's graham will be her surrogate. Patient would like to be a full code. Smoking status: Current some day smoker Tobacco type: e-cigarettes/vaping Second hand tobacco smoke exposure: No Alcohol intake: current Drinks per week: 2 Alcohol use details: occaisonal Substance use: never Substance use type: does not use Living arrangements: with family Additional occupation/education comments: [employer] Gender identity (if verbalized by the patient): Female Sexual Orientation (if Verbalized by the Patient): Straight or Heterosexual Spiritual care concerns: No Agree to blood products: Yes Meds Home Medications and Allergies Home Medications Medication Instructions Recorded Confirmed Type milk thistle seed extract 140 1 cap PO DAILY 05/11/22 05/11/22 History mg-milk thistle 500 mg capsule Allergies Allergy/AdvReac Type Severity Reaction Status Date / Time clindamycin AdvReac Unconscious Verified 05/23/22 07:27 Exam Resp: Auscultation: clear to auscultation bilaterally Cardio: Rate: regular rate Rhythm: regular rhythm GI: GI Palp: Yes Soft to palpation and No Tenderness to palpation present (GI) Assessment and Plan Assessment and plan (1) Colon cancer screening: Code(s): Z12.11 - Encounter for screening for malignant neoplasm of colon Status: Acute Assessment and Plan: Colonoscopy with possible biopsy or polypectomy or cautery or injection of substances.
[2022-05-23 07:28] VITALS: BP 128/71; PULSE 72; RESP 20; TEMP 36.5; O2SAT 100; BMI 33.0
[2022-05-23] MEDS: LACTATED RINGERS 1,000 ML 150 ML IV CONT (07:35)
--- NOTE | 2022-05-23 08:10 | WPDANESEPPF ---
Anes - Initial Pre Proc Eval Procedure: Operation Date: 05/23/22 08:30 Proposed Procedures p Colonoscopy - Brendan Faustin MD Date/Time: 05/23/22 08:10 Surgeon: Brendan Faustin MD Pre Op Diagnosis: positive cologuard Patient Data Age: 47 Gender: F Height: 1.6 m Weight: 84.5 kg Last Vital Signs Temp 97.7 F 05/23/22 07:28 Pulse 72 05/23/22 07:28 Resp 20 05/23/22 07:28 BP 128/71 05/23/22 07:28 Pulse Ox 100 05/23/22 07:28 O2 Del Method Room Air 05/23/22 07:28 Allergies Allergy/AdvReac Type Severity Reaction Status Date / Time clindamycin AdvReac Unconscious Verified 05/23/22 07:27 Home Medications Medication Instructions Recorded Confirmed Type milk thistle seed extract 140 1 cap PO DAILY 05/11/22 05/11/22 History mg-milk thistle 500 mg capsule Patient hx anesthesia problems: none Family hx anesthesia problems: none Results Review: All pre-operative results and documents have been reviewed as part of the pre-operative evaluation. [facility] Past Medical History Medical History Gall stone GERD (gastroesophageal reflux disease) Pancreatitis Surgical History Surgical History S/P cholecystectomy Family History Family History Mother Lung cancer Other Diabetes mellitus nieces Social History Social History Social History: Patient lives at home with her and 1 child who is a girl. Patient works for [employer] and has 3 dogs as pets. Patient's graham will be her surrogate. Patient would like to be a full code. Smoking status: Current some day smoker Tobacco type: e-cigarettes/vaping Second hand tobacco smoke exposure: No Alcohol intake: current Drinks per week: 2 Alcohol use details: occaisonal Substance use: never Substance use type: does not use Living arrangements: with family Additional occupation/education comments: [employer] Gender identity (if verbalized by the patient): Female Sexual Orientation (if Verbalized by the Patient): Straight or Heterosexual Spiritual care concerns: No Agree to blood products: Yes Anes - Eval Final PreProcedure Day of Procedure 05/23/22 08:10 Patient weight: obese Heart: regular rate and rhythm Lungs: clear to auscultation Airway: Mallampati scale class III Neurological: alert and oriented Last oral intake: >/= 8 hours ASA classification: II Emergent: no Anesthetic plan: proceed Anesthesia type and monitoring: general GIVS and standard monitoring Results Review: All pre-operative results and documents have been reviewed as part of the pre-operative evaluation. Informed Consent: The patient's anesthetic plan and its attendant risks and benefits were discussed with the patient/family/POA. Questions were solicited and answers provided to the satisfaction of the patient/family/POA.
[2022-05-23] MEDS: SIMETHICONE ORAL SUSPENSION 20 MG/0.3 ML 30 ML BOTTLE 0.6 ML IRRIGATION (08:27)
[2022-05-23 08:36] VITALS: BP 110/60; PULSE 76; RESP 22; O2SAT 100
[2022-05-23 08:46] VITALS: BP 112/62; PULSE 64; RESP 20; O2SAT 100
[2022-05-23 08:56] VITALS: BP 111/67; PULSE 65; RESP 20; O2SAT 100
== END 2022-05-23 09:02 | disposition home or self-care (01) ==
PROVIDERS: PCP Family Medicine Sports Medicine; Visit Provider Internal Medicine Gastroenterology
PROC: 0DJD8ZZ Inspection of Lower Intestinal Tract, Via Natural or Artificial Opening Endoscopic (ICD-10-PCS; CPT 45378; principal; 2022-05-23 08:30)
DX: Z12.11 Encounter for screening for malignant neoplasm of colon (principal); R19.5 Other fecal abnormalities; F17.290 Nicotine dependence, other tobacco product, uncomplicated; E66.9 Obesity, unspecified; Z68.33 Body mass index [BMI] 33.0-33.9, adult
CPT/HCPCS: 45378; J2704; J7120

== ENCOUNTER 2022-08-22 00:29 | Day surgery (SDC) | payer BC, SELFPAY ==
[2022-08-13 10:40] VITALS: BMI 30.6
--- NOTE | 2022-08-21 17:05 | PM.HPGS ---
History of Present Illness History of Present Illness Consent: Risks, benefits, and alternatives have been discussed and questions answered. Patient agrees to proceed with procedure. Chief complaint: Abnormal CT scan & RUQ pain Narrative: Ty Mc is a 47 year old female was referred for investigation of an abnormal CT scan. She had been having pain recently in the right side of her back and also wears the right upper quadrant of her abdomen. Usually this occurs after meals especially greasy foods. She had had choledocholithiasis and pancreatitis treated with ERCP last year. A CT scan shows normal biliary tree but shows thickening of the gastric antrum and pylorus. Review of Systems Review of Systems: All systems reviewed & are unremarkable except as noted in HPI and below PMFSH Past Medical History Medical History Gall stone GERD (gastroesophageal reflux disease) Lesion of right ovary Obesity (BMI 30-39.9) Pancreatitis Tobacco abuse Surgical History Surgical History S/P cholecystectomy Family History Family History Mother Lung cancer Other Diabetes mellitus nieces Social History Social History Social History: Patient lives at home with her and 1 child who is a girl. Patient works for [employer] and has 3 dogs as pets. Patient's graham will be her surrogate. Patient would like to be a full code. Smoking status: Current every day smoker Tobacco type: e-cigarettes/vaping Second hand tobacco smoke exposure: No Alcohol intake: current Drinks per week: 2 Alcohol use details: on occasion Substance use: never Substance use type: does not use Living arrangements: with family Additional occupation/education comments: [employer] Gender identity (if verbalized by the patient): Female Sexual Orientation (if Verbalized by the Patient): Straight or Heterosexual Spiritual care concerns: No Agree to blood products: Yes Meds Home Medications and Allergies Home Medications Medication Instructions Recorded Confirmed Type milk thistle seed extract 140 1 cap PO DAILY 05/11/22 08/22/22 History mg-milk thistle 500 mg capsule pantoprazole 40 mg tablet,delayed 40 mg PO QAM 08/07/22 08/22/22 History release Allergies Allergy/AdvReac Type Severity Reaction Status Date / Time clindamycin AdvReac Unconscious Verified 08/22/22 07:28 Exam Const: General: alert Orientation/consciousness: patient oriented x3 Resp: Auscultation: clear to auscultation bilaterally Cardio: Rhythm: regular rhythm GI: GI Palp: Yes Soft to palpation and No Tenderness to palpation present (GI) Neuro: General: patient oriented x3 Assessment and Plan Assessment and plan (1) Abnormal CT scan, gastrointestinal tract: Code(s): R93.3 - Abnormal findings on diagnostic imaging of other parts of digestive tract Status: Acute Assessment and Plan: EGD with possible biopsy or dilatation or cautery.
[2022-08-22 07:30] VITALS: BP 131/76; PULSE 75; RESP 16; TEMP 36.5; O2SAT 100
[2022-08-22] MEDS: LACTATED RINGERS 1,000 ML 150 ML IV CONT (07:41)
--- NOTE | 2022-08-22 08:07 | P.PNAN_ITS ---
Anes - Initial Pre Proc Eval Procedure: Operation Date: 08/22/22 08:30 Proposed Procedures p Esophagogastroduodenoscopy EGD - Brendan Faustin MD Date/Time: 08/22/22 08:07 Surgeon: Brendan Faustin MD Pre Op Diagnosis: Abnormal CT scan & RUQ pain Patient Data Age: 47 Gender: F Height: 1.63 m Weight: 85.5 kg Last Vital Signs Temp 97.7 F 08/22/22 07:30 Pulse 75 08/22/22 07:30 Resp 16 08/22/22 07:30 BP 131/76 08/22/22 07:30 Pulse Ox 100 08/22/22 07:30 O2 Del Method Room Air 08/22/22 07:30 Allergies Allergy/AdvReac Type Severity Reaction Status Date / Time clindamycin AdvReac Unconscious Verified 08/22/22 07:28 Home Medications Medication Instructions Recorded Confirmed Type milk thistle seed extract 140 1 cap PO DAILY 05/11/22 08/22/22 History mg-milk thistle 500 mg capsule pantoprazole 40 mg tablet,delayed 40 mg PO QAM 08/07/22 08/22/22 History release Patient hx anesthesia problems: none Family hx anesthesia problems: none Results Review: All pre-operative results and documents have been reviewed as part of the pre- operative evaluation. [facility] Past Medical History Medical History Gall stone GERD (gastroesophageal reflux disease) Lesion of right ovary Obesity (BMI 30-39.9) Pancreatitis Tobacco abuse Surgical History Surgical History S/P cholecystectomy Family History Family History Mother Lung cancer Other Diabetes mellitus nieces Social History Social History Social History: Patient lives at home with her and 1 child who is a girl. Patient works for [employer] and has 3 dogs as pets. Patient's bow will be her surrogate. Patient would like to be a full code. Smoking status: Current every day smoker Tobacco type: e-cigarettes/vaping Second hand tobacco smoke exposure: No Alcohol intake: current Drinks per week: 2 Alcohol use details: on occasion Substance use: never Substance use type: does not use Living arrangements: with family Additional occupation/education comments: [employer] Gender identity (if verbalized by the patient): Female Sexual Orientation (if Verbalized by the Patient): Straight or Heterosexual Spiritual care concerns: No Agree to blood products: Yes Anes - Eval Final PreProcedure Day of Procedure 08/22/22 08:07 Patient weight: obese Heart: regular rate and rhythm Lungs: clear to auscultation Airway: Mallampati scale class II Neurological: alert and oriented Last oral intake: >/= 8 hours ASA classification: II Emergent: no Anesthetic plan: proceed Anesthesia type and monitoring: general GIVS and standard monitoring Results Review: All pre-operative results and documents have been reviewed as part of the pre- operative evaluation. Informed Consent: The patient's anesthetic plan and its attendant risks and benefits were discussed with the patient/family/POA. Questions were solicited and answers provided to the satisfaction of the patient/family/POA.
[2022-08-22 08:31] VITALS: BP 114/61; PULSE 75; RESP 21; O2SAT 100
[2022-08-22 08:41] VITALS: BP 117/75; PULSE 68; RESP 23; O2SAT 100
[2022-08-22 08:51] VITALS: BP 111/76; PULSE 65; RESP 20; O2SAT 100
== END 2022-08-22 09:00 | disposition home or self-care (01) ==
PROVIDERS: PCP Family Medicine Sports Medicine; Visit Provider Internal Medicine Gastroenterology
PROC: 0DJ08ZZ Inspection of Upper Intestinal Tract, Via Natural or Artificial Opening Endoscopic (ICD-10-PCS; CPT 43235; principal; 2022-08-22 08:30)
DX: K29.70 Gastritis, unspecified, without bleeding (principal); K21.9 Gastro-esophageal reflux disease without esophagitis; E66.9 Obesity, unspecified; Z68.32 Body mass index [BMI] 32.0-32.9, adult; F17.290 Nicotine dependence, other tobacco product, uncomplicated
CPT/HCPCS: 43239; 87081; J2704; J7120

== ENCOUNTER 2023-12-26 11:25 | Outpatient (CLI) | payer BC, SELFPAY ==
--- NOTE | ~2023-12-26 | XR_ITS ---
EXAMINATION: XR abdomen/kub 1V INDICATION: Right lower quadrant pain TECHNIQUE: Supine views of the abdomen were obtained on 2 radiographs. COMPARISON: None FINDINGS: The bowel gas pattern is normal. No dilated loops of bowel are identified. Cholecystectomy clips are noted in the right upper quadrant. The visualized osseous structures are unremarkable. IMPRESSION: 1. No radiographic correlate for the patient's symptoms. Reviewed, dictated and finalized at location L. LITATOR
[2023-12-26 11:55] LABS: Hematocrit 44.2 % (37.0-47.0); Hemoglobin 14.6 g/dL (12.0-15.0); Mean Corpuscular Hemoglobin 29.4 pg (26-34); Mean Corpuscular Volume 88.9 fl (80-100); Mean Platelet Volume 9.7 fl (7.4-10.4); Platelet Count Result 302 k/mm3 (150-375); Red Blood Count 4.97 M/mm3 (4.2-5.4); Red Cell Distribution Width 12.7 % (11.5-14.5); White Blood Count 6.3 K/mm3 (4.5-10.0)
[2023-12-26 12:07] LABS: Alanine Aminotransferase 32 U/L (6-35); Albumin Level 4.8 g/dL (3.5-5.1); Alkaline Phosphatase 61 U/L (38-126); Amylase 77 U/L (30-110); Anion Gap 9 mmol/L (8-16); Aspartate Amino Transferase 27 U/L (14-36); Bilirubin,Total 0.7 mg/dL (0.2-1.3); Blood Urea Nitrogen 13 mg/dL (7-17); Calcium 9.5 mg/dL (8.4-10.2); Carbon Dioxide 27 mmol/L (22-30); Chloride 105 mmol/L (98-107); Estimated Glomerular Filt Rate > 60; Glucose 99 mg/dL (65-110); Lipase 48 U/L (23-300); Sodium 141 mmol/L (137-145)
== END 2023-12-26 11:26 | disposition home or self-care (01) ==
LOC: ANHLAB 11:26
PROVIDERS: PCP Family Medicine; Visit Provider Nurse Practitioner
DX: K59.00 Constipation, unspecified (principal); R10.11 Right upper quadrant pain; R10.31 Right lower quadrant pain
CPT/HCPCS: 36415; 74018; 80053; 82150; 83690; 85027

== ENCOUNTER 2024-11-25 10:10 | Outpatient (CLI) | payer BC, SELFPAY ==
[2024-11-25 10:40] LABS: Alanine Aminotransferase 24 U/L (6-35); Albumin Level 4.6 g/dL (3.5-5.1); Alkaline Phosphatase 58 U/L (38-126); Anion Gap 10 mmol/L (4-12); Aspartate Amino Transferase 22 U/L (14-36); Bilirubin,Total 0.6 mg/dL (0.2-1.3); Blood Urea Nitrogen 14 mg/dL (7-17); Calcium 9.1 mg/dL (8.4-10.2); Carbon Dioxide 25 mmol/L (22-30); Chloride 104 mmol/L (98-107); Estimated Glomerular Filt Rate > 60; Glucose 102 mg/dL (65-110); Lipase 51 U/L (23-300); Potassium 4.5 mmol/L (3.4-5.0); Sodium 139 mmol/L (137-145)
[2024-11-25 10:58] LABS: Hematocrit 42.7 % (37.0-47.0); Hemoglobin 14.2 g/dL (12.0-15.0); Mean Corpuscular HGB Conc 33.3 g/dl (32-36); Mean Corpuscular Volume 87.3 fl (80-100); Platelet Count Result 325 k/mm3 (150-375); Red Blood Count 4.89 M/mm3 (4.2-5.4); White Blood Count 7.9 K/mm3 (4.5-10.0)
--- OUTSIDE RECORDS SUMMARY | 2024-11-26 23:05 | XMS_ITS | Referral Summary ---
Author Organization [facility] al Address [address] [place] [address] Care Team Providers Care Hardwood Floor Layer Name Role Phone Garrett Domingo MD Primary Care Provider [phone] Allergies Active Allergy Reactions Criticality Noted Date Comments Clindamycin Shortness of breath High 05/05/2018 Medications naproxen sodium 220 mg capsule Take 2 tablets by mouth 2 (two) times a day. Active omeprazole (PriLOSEC) 40 mg capsule Take 40 mg by mouth daily Active Active Problems Problem Noted Date Diagnosed Date Epigastric burning sensation 03/22/2020 Assessment & Plan (03/22/2020 10:39 AM CDT): Occurs about once a month. She says it usually occurs when she feels as if her bowels are not working as well as usual. The burning subsides once she has a BM. She does get belching along with this burning pain as well. Pt says she has taken pepcid for this before and helps. Use liquid Gaviscon prn for this burning. Stop taking apple cider vinegar gummies as this can cause more issues with heartburn. Nausea 03/22/2020 Assessment & Plan (03/22/2020 10:42 AM CDT): Gets occasional nausea only when she eats a large amount of sugary things. No vomiting. Abnormal stool color 03/22/2020 Assessment & Plan (03/22/2020 10:43 AM CDT): Pt says she is still having more yellow stools. Pt said happened after gallbladder removal which is likely cause. She says sometimes it appears that there is a yellow stain in toilet water and again occurring since gallbladder removal. She says urine is normal yellow color. We will recheck hepatic function panel today as she had mildly elevated LFT's at last appt. Calculus of bile duct 03/23/2019 Assessment & Plan (10/15/2019 9:34 AM CARPENTER BRIDGE): Pt was having right sided abdominal pain, nausea after meals, and frequent yellow BM's that resolved yesterday. She went to see PCP at [facility] and he rena labs. Unable to view these but will request these sent over. Pt says all symptoms have resolved except she is still seeing yellow stools. Possible patient passed stone again. Will review labs once we receive them from her PCP at [facility]. Assessment & Plan (03/23/2019 3:04 PM CDT): Based on patient's labs and symptoms there was high suspicion for stone in hepatobiliary duct. Symptoms were beginning to improve at her last office visit but MRCP ordered to rule out continued presence of stone. MRCP was negative. Today, pt is asymptomatic and appears stone has passed on its own. Will put in order for repeat LFT's to ensure levels are trending down. Non-alcoholic fatty liver disease 03/18/2019 Assessment & Plan (03/23/2019 3:05 PM CDT): Re-emphasized importance of diet, exercise, and avoiding alcohol with fatty liver. Instructed to try taking fish oil supplement daily. Order for hepatitis and ULISSES to rule out other sources of elevated LFT's. Assessment & Plan (03/18/2019 4:34 PM CDT): Discussed importance of alcohol cessation, healthy diet, and exercise. Pt appears motivated to make these changes and has already incorporated some of these changes. Will f/u on her LFT's. Elevated bilirubin 03/18/2019 Assessment & Plan (03/23/2019 3:02 PM CDT): Will reorder labs to recheck levels. Pt's jaundice has resolved. Assessment & Plan (03/18/2019 4:34 PM CDT): Pt noted to have jaundice of sclera. She was told by her PCP to get exposure to sunlight to help jaundice. Will obtain MRCP to rule out stone as cause of elevated bilirubin. Elevated LFTs 03/18/2019 Assessment & Plan (03/22/2020 10:44 AM CDT): Will recheck levels again today. Pt had mild elevation on last labs likely due to fatty liver. Assessment & Plan (03/23/2019 3:02 PM CDT): Order for hepatic function panel to reassess levels. Assessment & Plan (03/18/2019 4:36 PM CDT): High suspicion for stone in duct. MRCP jazmin. Will obtain Hepatitis panel and ULISSES to rule out other causes for high LFT's. Continue PPI and stick with bland diet until symptoms completely resolve. F/U on Saturday. Resolved Problems Problem Noted Date Diagnosed Date Resolved Date Acute gallstone pancreatitis 05/02/2018 05/27/2018 Assessment & Plan (05/06/2018 10:50 AM CDT): - Lipase markedly elevated at 8,260 on admission --> 42 today - RUQ US notable for choledocolithiasis; epigastric pain has resolved - Oxycodone 5 mg q4h PRN - LFTs improving, trend q12h per GI recs - s/p EUS on 05/05, results as above - Surgery following, plan for cholecystectomy today. NPO since mdinight - IV Cipro/Flagyl per GI recommendations, s/p 3 days IV Cipro and Flagyl. Will discuss with GI if pt needs to be on PO antibiotics after cholecystectomy - Continue IVF NS @75 mL/hr Assessment & Plan (05/05/2018 2:38 PM CDT): - Lipase markedly elevated at 8,260 on admission --> 42 today - RUQ US notable for choledocolithiasis; epigastric pain has resolved - Oxycodone 5 mg q4h PRN - LFTs improving, trend q12h per GI recs - GI consulted, plan for EUS w/possible ERCP today - IV Cipro/Flagyl per GI recommendations, day 3 of abx; likely dc post ERCP - Surgery following, plan for lap deya during this admission - Continue IVF NS @75 mL/hr Assessment & Plan (05/04/2018 9:45 AM CDT): -Lipase markedly elevated at 8,260 on admission, trend daily per surg recs -RUQ US as above, notable for choledocolithiasis -Epigastric pain has resolved -Oxycodone 5 mg q4h prn -LFTs improving, trend q12h per GI recs -GI consulted, plan for EUS w/possible ERCP tomorrow. NPO at midnight -IV Cipro/Flagyl per GI recommendations, day 2 of abx -Surgery following, plan for lap deya during this admission -Continue IVF NS @75 mL/hr Assessment & Plan (05/03/2018 12:49 PM CDT): -Lipase markedly elevated at 8,260 on admission -RUQ US as above, notable for choledocolithiasis -Epigastric pain has resolved -Oxycodone 5 mg q4h prn -LFTs and direct bilirubin improved from yesterday -Trend LFTs q12h per GI recs -GI consulted for recs, they would like to do EUS on Saturday with possible ERCP, pt will be NPO night prior -IV Cipro/Flagyl per GI recommendations -Surgery saw pt in ED, plan for lap deya during this admission. Will contact surg to find out approximate day for operation -Continue IVF NS @75 mL/hr Assessment & Plan (05/02/2018 7:41 PM CDT): -Lipase markedly elevated at 8,260 -RUQ US as above, notable for choledocolithiasis -Epigastric pain is remarkably well controlled at this time -Oxycodone 5 mg q4h prn -LFTs as above, elevated bilirubin (mostly direct), likely 2/2 choledocolithiasis -Trend LFTs -GI consulted for recs, possible ERCP -NPO for possible procedure -Surgery saw pt in ED, plan for lap deya during this admission -IVF NS @75 mL/hr Gallstones 05/02/2018 05/27/2018 Assessment & Plan (05/06/2018 10:51 AM CDT): - Mild gallbladder wall thickening on RUQ US but negative sonographic Benito's sign - Afebrile, no leukocytosis or RUQ pain - Plan for cholecystectomy today, NPO since midnight. Will discuss with surgery whether she will be surg primary after operation or medicine team - History of intermittent dark urine/pale stools/worsening of abdominal pain for past year, likely correlates with intermittent CBD obstruction - s/p EUS on 05/05, results as above Assessment & Plan (05/05/2018 2:39 PM CDT): - Mild gallbladder wall thickening on RUQ US but negative sonographic Benito's sign - Afebrile, no leukocytosis or RUQ pain - Surgery saw patient in ED, plan for lap deya during this admission - History of intermittent dark urine/pale stools/worsening of abdominal pain for past year, likely correlates with intermittent CBD obstruction - GI following. EUS w/possible ERCP this afternoon Assessment & Plan (05/04/2018 9:46 AM CDT): -Mild gallbladder wall thickening on RUQ US but negative sonographic Benito's sign -Afebrile, no leukocytosis or RUQ pain -Surgery saw pt in ED, plan for lap deya during this admission -History of intermittent dark urine/pale stools/worsening of abdominal pain for past year, likely correlates with intermittent CBD obstruction -GI following. EUS w/possible ERCP tomorrow Assessment & Plan (05/03/2018 12:50 PM CDT): -Mild gallbladder wall thickening on RUQ US but negative sonographic Benito's sign -Afebrile, no leukocytosis or RUQ pain -Surgery saw pt in ED, plan for lap deya during this admission -History of intermittent dark urine/pale stools/worsening of abdominal pain for past year, likely correlates with intermittent CBD obstruction -GI consulted, appreciate recs -d/c PPI as pt's pain is more consistent with gallstones vs acid reflux Assessment & Plan (05/02/2018 7:39 PM CDT): -Mild gallbladder wall thickening on RUQ US but negative sonographic Benito's sign -Negative benito's sign on exam today -Afebrile, no leukocytosis -Pt's pain is primarily epigastric -Surgery saw pt in ED, plan for lap deya during this admission -History of intermittent dark urine/pale stools/worsening of abdominal pain for past year, likely correlates with intermittent gallstone CBD obstruction -GI consulted, appreciate recs Microcytic anemia 05/02/2018 05/27/2018 Assessment & Plan (05/06/2018 10:52 AM CDT): - Patient reports regular periods with moderate flow for 3-5 days, unlikely cause of anemia - She has never been diagnosed with anemia in the past but does recall taking iron supplements during - Iron panel wnl, Ferritin low normal at 16 - Hb stable; trend CBC Assessment & Plan (05/05/2018 2:39 PM CDT): - Patient reports regular periods with moderate flow for 3-5 days, unlikely cause of anemia - She has never been diagnosed with anemia in the past but does recall taking iron supplements during - Iron panel wnl, Ferritin low normal at 16. Consider oral iron supplementation at d/c - Hb stable; trend CBC Assessment & Plan (05/04/2018 9:46 AM CDT): -Pt reports regular periods with moderate flow for 3-5 days, unlikely cause of anemia -She has never been diagnosed with anemia in the past but does recall taking iron supplements during -Iron panel wnl, Ferritin low normal at 16. Will start oral iron supplementation at d/c -Hb stable -follow CBC Assessment & Plan (05/03/2018 12:51 PM CDT): -Pt reports regular periods with moderate flow for 3-5 days, unlikely cause of anemia -She has never been diagnosed with anemia in the past but does recall taking iron supplements during -Iron panel wnl, Ferritin low normal at 16. Will start oral iron supplementation at d/c -Hb 10.9, MCV 76.4 -daily CBC Assessment & Plan (05/02/2018 7:41 PM CDT): -Pt reports regular periods with moderate flow for 3-5 days -Iron panel ordered -Hb 11.4, MCV 76.8 -CBC in AM Social History Tobacco Use Types Packs/Day Years Used Date Smoking Tobacco: Former Cigarettes Q uit: 2016 Smokeless Tobacco: Never Comments:quit 2016 Alcohol Use Standard Drinks/Week Comments Yes 0 (1 standard drink = 0.6 oz pur e alcohol) Occasionally Comments No Sex and Gender Information Value Date Recorded Sex Assigned at Not on file Legal Sex Female 9:27 AM CDT Gender Identity Not on file Sexual Orientation Not on file Last Filed Vital Signs Vital Sign Reading Time Taken Comments Blood Pressure 146/93 10/02/2021 9:37 PM CARPENTER BRIDGE Pulse 83 10/02/2021 9:37 PM CARPENTER BRIDGE Temperature 36.2 ??C (97.2 ??F) 10/02/2021 9:37 PM CS T Respiratory Rate 20 10/02/2021 9:37 PM CARPENTER BRIDGE Oxygen Saturation 100% 10/02/2021 9:37 PM CARPENTER BRIDGE Inhaled Oxygen Concentration - - Weight 80.7 kg (178 lb) 10/02/2021 9:37 PM CARPENTER BRIDGE Height 162.6 cm (5' 4 ) 10/02/2021 9:37 PM CARPENTER BRIDGE Body Mass Index 30.55 10/02/2021 9:37 PM CARPENTER BRIDGE Plan of Treatment Not on file Insurance [facility] CHOICE OOS [facility] Advance Directives For more information, please contact: [phone] * Full Code (Latest Code Status on File) Date Activated Date Inactivated Comments 05/05/2018 3:48 PM 05/07/2018 2:34 PM * Full Code Date Activated Date Inactivated Comments 05/02/2018 7:18 PM 05/05/2018 3:48 PM Care Teams Hardwood Floor Layer Relationship Specialty Start Date End Date Garrett Domingo MD [address] [place] [address] PCP - General Family Medicine 05/21/23
--- OUTSIDE RECORDS SUMMARY | 2024-11-26 23:05 | XMS_ITS | Continuity of Care Document ---
Author Organization [facility] Address [address] [place] [address] Phone Care Team Providers Care Relay Tester Helper Name Role Phone Humberto Cortez MD Unavailable Unavailable Procedures Procedure Date Medical Testimony Deposition Independent Medical Examination BENJY Pre Payment Advance Directives Directive Yes / No Effective Date File Name No Information Encounters Encounter Description Practice Location Reason(s) For Visit Diagnoses Date Provider Providers Copied on Encounter [facility], [address], [id number], tel:[phone] [facility] No Information 9 Dana Paul. [address] [facility], [place] [address], [place], [place], [facility], [place]. tel: [phone] Independent Medical Examination BENJY [facility], [address] [place] [address], [id number], [place] tel:[phone] [facility] Maciel Venegas (chief complaint) No Information 9 Dana Paul. [address] [facility], [address], [place], [place], [facility], [place]. tel: [phone] [facility], [address] [place] [address], [id number], tel:[phone] [facility] No Information 9 Dana Paul. [address] [facility], [address], [place], [address], [place]. tel:[phone] Family History Family Member Type Diagnosis Age [...] Date Complaint History Of Prese nt Illness Newsbound Functional Status Date Functional Assessmen t No Information Instructions Date Instruction Additional Infor mation No Information Assessments Type Assessment Date No Information Patient Care Teams Name Effective Dates (start - stop) Status Members No Information
--- OUTSIDE RECORDS SUMMARY | 2024-11-26 23:05 | XMS_ITS | Clinical Summary ---
Author Organization [facility] al Address [address] [place] [address] Care Team Providers Care Exercise Instructor Name Role Phone Garrett Domingo MD Primary Care Provider [phone] Allergies Active Allergy Reactions Criticality Noted Date [...] 03/23/2019 Assessment & Plan (10/15/2019 9:34 AM SHIRT LINE OPERATOR): Pt was having right sided abdominal pain, nausea after meals, and frequent yellow BM's that resolved yesterday. She went to see PCP at [facility] and he rena labs. Unable to view these but will request these sent over. Pt says all symptoms have resolved except she is still seeing yellow stools. Possible patient passed stone again. Will review labs once we receive them from her PCP at [facility]. Assessment & Plan (03/23/2019 3:04 PM CDT): [...] -Hb 11.4, MCV 76.8 -CBC in AM Surgical History Surgery Date Site/Laterality Comments ERCP 05/05/2018 Medical History Medical History Date Comments Gallstones GERD (gastroesophageal reflux disease) Fatty liver Family History Medical History Relation Name Comments Cancer Mother lungs Anesthesia problems Neg Hx Coronary artery disease Neg Hx Relation Name Status Comments Mother Social History Tobacco Use Types Packs/Day Years Used Date Smoking Tobacco: Former Cigarettes Q uit: 2016 Smokeless Tobacco: Never Comments:quit 2015 Alcohol Use Standard Drinks/Week Comments Yes 0 (1 standard drink = 0.6 oz pur e alcohol) Occasionally Comments No Sex and Gender Information Value Date Recorded Sex Assigned at Not on file Legal Sex Female 9:27 AM CDT Gender Identity Not on file Sexual Orientation Not on file Obstetrics History Last Filed Vital Signs Vital Sign Reading Time Taken Comments Blood Pressure 146/93 10/02/2021 9:37 PM SHIRT LINE OPERATOR Pulse 83 10/02/2021 9:37 PM SHIRT LINE OPERATOR Temperature 36.2 ??C (97.2 ??F) 10/02/2021 9:37 PM CS T Respiratory Rate 20 10/02/2021 9:37 PM SHIRT LINE OPERATOR Oxygen Saturation 100% 10/02/2021 9:37 PM SHIRT LINE OPERATOR Inhaled Oxygen Concentration - - Weight 80.7 kg (178 lb) 10/02/2021 9:37 PM SHIRT LINE OPERATOR Height 162.6 cm (5' 4 ) 10/02/2021 9:37 PM SHIRT LINE OPERATOR Body Mass Index 30.55 10/02/2021 9:37 PM SHIRT LINE OPERATOR Plan of Treatment Not on file Insurance [facility] CHOICE OOS [employer] [place] Advance Directives For more information, please contact: [phone] * Full Code (Latest Code Status on File) Date Activated Date Inactivated Comments 05/05/2018 3:48 PM 05/07/2018 2:34 PM * Full Code Date Activated Date Inactivated Comments 05/02/2018 7:18 PM 05/05/2018 3:48 PM Care Teams Exercise Instructor Relationship Specialty Start Date End Date Garrett Domingo MD [address] [place] [address] PCP - General Family Medicine 05/21/23
--- OUTSIDE RECORDS SUMMARY | 2024-11-26 23:05 | XMS_ITS | Encounter Summary ---
Author Organization [facility] Address [address] [place] [address] Care Team Providers Care Promotions Executive Name Role Phone Conrado Woodruff MD Primary Care Provider [phone] Garrett Domingo MD Primary Care Provider [phone] Encounter Details Date Type Department Care Team (Late st Contact Info) Description 05/02/2018 Documentation Internal Medicine Khalif Juarez Social History Tobacco Use Types Packs/Day Years Used Date Smoking Tobacco: Never Smokeless Tobacco: Never Alcohol Use Standard Drinks/Week Comments Yes 0 (1 standard drink = 0.6 oz pur e alcohol) Occasionally Comments Unknown Sex and Gender Information Value Date Recorded Sex Assigned at Not on file Legal Sex Female 9:27 AM CDT Gender Identity Not on file Sexual Orientation Not on file documented as of this encounter Plan of Treatment Not on file documented as of this encounter Visit Diagnoses Not on filedocumented in this encounter Care Teams Promotions Executive Relationship Specialty [place] [address] [place] [id number] PCP - General 05/02/18 05/20/23 [place] [address] [place] [address] PCP - General Family Medicine 05/21/23 documented as of this encounter
== END 2024-11-25 10:11 | disposition home or self-care (01) ==
LOC: ANHLAB 10:11
PROVIDERS: PCP Family Medicine; Visit Provider Nurse Practitioner
DX: R10.11 Right upper quadrant pain (principal)
CPT/HCPCS: 36415; 80053; 83690; 85027

== ENCOUNTER 2024-12-01 07:17 | Outpatient (CLI) | payer BC, SELFPAY ==
--- NOTE | ~2024-12-01 | US_ITS ---
Limited Abdominal Sonogram: Real-time sonographic imaging of the right upper quadrant was performed. Clinical History: Right upper quadrant pain Findings: The liver appears normal with no evidence of mass lesion or bile duct dilatation. Main por shirley vein demonstrates normal direction of flow. The gallbladder is absent, compatible prior cholecyst ectomy. The common bile duct measures 7 mm. The visualized pancreas, aorta, and IVC are unremarkable . Impression: No significant abnormality seen. Status post cholecystectomy. Reviewed, dictated and finalized at location . NTURE CHALLENGE INSTRUCTOR Impression: No significant abnormality seen. Status post cholecystectomy.
--- OUTSIDE RECORDS SUMMARY | 2024-12-01 07:21 | XMS_ITS | Continuity of Care Document ---
Author Organization [facility] Address [address] [place] [address] Phone Care Team Providers Care District Scout Executive Name Role Phone Humberto Cortez MD Unavailable Unavailable Procedures Procedure Date Medical Testimony Deposition Independent Medical Examination BENJY Pre Payment Advance Directives Directive Yes / No Effective Date File Name No Information Encounters Encounter Description Practice Location Reason(s) For Visit Diagnoses Date Provider Providers Copied on Encounter [facility], [address], [id number], tel:[phone] [facility] No Information 9 Dana Paul. [address] [facility], [place] [address], [place], [place], [facility], [place]. tel: [phone] Independent Medical Examination BENJY [facility], [address] [place] [address], [id number], [place] tel:[phone] [facility] Maciel Venegas (chief complaint) No Information 9 Dana Paul. [address] [facility], [facility], [place], [place], [facility], [place]. tel: [phone] [facility], [address] [place] [address], [id number], tel:[phone] [facility] No Information 9 Dana Paul. [address] [facility], [address], [place], [address], [place]. tel:[phone] Family History Family Member Type Diagnosis Age [...] Date Complaint History Of Prese nt Illness [employer] Functional Status Date Functional Assessmen t No Information Instructions Date Instruction Additional Infor mation No Information Assessments Type Assessment Date No Information Patient Care Teams Name Effective Dates (start - stop) Status Members No Information
--- OUTSIDE RECORDS SUMMARY | 2024-12-01 07:21 | XMS_ITS | Referral Summary ---
Author Organization [facility] al Address [address] [place] [address] Care Team Providers Care Kitchen Utility Associate Name Role Phone Garrett Domingo MD Primary Care Provider [phone] Allergies Active Allergy Reactions Criticality Noted Date [...] 03/23/2019 Assessment & Plan (10/15/2019 9:34 AM KIDS CLUB ATTENDANT): Pt was having right sided abdominal pain, nausea after meals, and frequent yellow BM's that resolved yesterday. She went to see PCP at [facility] and he rena labs. Unable to view these but will request these sent over. Pt says all symptoms have resolved except she is still seeing yellow stools. Possible patient passed stone again. Will review labs once we receive them from her PCP at [place]. Assessment & Plan (03/23/2019 3:04 PM CDT): [...] Comments Blood Pressure 146/93 10/02/2021 9:37 PM KIDS CLUB ATTENDANT Pulse 83 10/02/2021 9:37 PM KIDS CLUB ATTENDANT Temperature 36.2 ??C (97.2 ??F) 10/02/2021 9:37 PM CS T Respiratory Rate 20 10/02/2021 9:37 PM KIDS CLUB ATTENDANT Oxygen Saturation 100% 10/02/2021 9:37 PM KIDS CLUB ATTENDANT Inhaled Oxygen Concentration - - Weight 80.7 kg (178 lb) 10/02/2021 9:37 PM KIDS CLUB ATTENDANT Height 162.6 cm (5' 4 ) 10/02/2021 9:37 PM KIDS CLUB ATTENDANT Body Mass Index 30.55 10/02/2021 9:37 PM KIDS CLUB ATTENDANT Plan of Treatment Not on file Insurance [facility] CHOICE OOS [facility] Advance Directives For more information, please contact: [phone] * Full Code (Latest Code Status on File) Date Activated Date Inactivated Comments 05/05/2018 3:48 PM 05/07/2018 2:34 PM * Full Code Date Activated Date Inactivated Comments 05/02/2018 7:18 PM 05/05/2018 3:48 PM Care Teams Kitchen Utility Associate Relationship Specialty Start Date End Date Garrett Domingo MD [address] [place] [address] PCP - General Family Medicine 05/21/23
--- OUTSIDE RECORDS SUMMARY | 2024-12-01 07:21 | XMS_ITS | Clinical Summary ---
Author Organization [facility] Address [address] [place] [address] Care Team Providers Care Executive Assistant To General Counsel Name Role Phone Garrett Domingo MD Primary Care Provider [phone] Allergies Active Allergy Reactions Criticality Noted Date [...] 03/23/2019 Assessment & Plan (10/15/2019 9:34 AM CORE CLEANER): Pt was having right sided abdominal pain, nausea after meals, and frequent yellow BM's that resolved yesterday. She went to see PCP at [facility] and he rena labs. Unable to view these but will request these sent over. Pt says all symptoms have resolved except she is still seeing yellow stools. Possible patient passed stone again. Will review labs once we receive them from her PCP at [facility]. Assessment & Plan (03/23/2019 3:04 PM CDT): [...] Comments Blood Pressure 146/93 10/02/2021 9:37 PM CORE CLEANER Pulse 83 10/02/2021 9:37 PM CORE CLEANER Temperature 36.2 ??C (97.2 ??F) 10/02/2021 9:37 PM CS T Respiratory Rate 20 10/02/2021 9:37 PM CORE CLEANER Oxygen Saturation 100% 10/02/2021 9:37 PM CORE CLEANER Inhaled Oxygen Concentration - - Weight 80.7 kg (178 lb) 10/02/2021 9:37 PM CORE CLEANER Height 162.6 cm (5' 4 ) 10/02/2021 9:37 PM CORE CLEANER Body Mass Index 30.55 10/02/2021 9:37 PM CORE CLEANER Plan of Treatment Not on file Insurance [facility] CHOICE OOS [employer] [place] Advance Directives For more information, please contact: [phone] * Full Code (Latest Code Status on File) Date Activated Date Inactivated Comments 05/05/2018 3:48 PM 05/07/2018 2:34 PM * Full Code Date Activated Date Inactivated Comments 05/02/2018 7:18 PM 05/05/2018 3:48 PM Care Teams Executive Assistant To General Counsel Relationship Specialty Start Date End Date Garrett Domingo MD [address] [place] [address] PCP - General Family Medicine 05/21/23
--- OUTSIDE RECORDS SUMMARY | 2024-12-01 07:22 | XMS_ITS | Encounter Summary ---
Author Organization [facility] Healthcare Address [address] [place] [address] Care Team Providers Care Personal Fitness Manager Name Role Phone Conrado Woodruff MD Primary Care Provider [phone] Garrett Domingo MD Primary Care Provider [phone] Encounter Details Date Type Department Care Team [...] on filedocumented in this encounter Care Teams Personal Fitness Manager Relationship Specialty [place] [address] [place] [address] PCP - General 05/02/18 05/20/23 [place] [address] [place] [address] PCP - General Family Medicine 05/21/23 documented as of this encounter
== END 2024-12-01 07:18 | disposition home or self-care (01) ==
PROVIDERS: PCP Family Medicine; Visit Provider Nurse Practitioner
DX: R10.11 Right upper quadrant pain (principal); Z90.49 Acquired absence of other specified parts of digestive tract
CPT/HCPCS: 76705

== ENCOUNTER 2025-05-12 11:31 | Outpatient (CLI) | payer BC, SELFPAY ==
--- OUTSIDE RECORDS SUMMARY | 2025-05-12 11:35 | XMS_ITS | Encounter Summary ---
Author Organization [facility] Healthcare Address [address] [place] [address] Care Team Providers Care Miller Kiln Dried Salt Name Role Phone Conrado Woodruff MD Primary Care Provider [phone] Garrett Domingo MD Primary Care Provider [phone] Encounter Details Date Type Department Care Team [...] on filedocumented in this encounter Care Teams Miller Kiln Dried Salt Relationship Specialty Start Date End Date Conrado Woodruff MD [address] [place] [address] PCP - General 05/02/18 05/20/23 [place] [address] [place] [address] PCP - General Family Medicine 05/21/23 documented as of this encounter
--- OUTSIDE RECORDS SUMMARY | 2025-05-12 11:35 | XMS_ITS | Referral Summary ---
Author Organization [facility] al Address [address] [place] [address] Care Team Providers Care Robot Designer Name Role Phone Garrett Domingo MD Primary Care Provider [phone] Allergies Active Allergy Reactions Criticality Noted Date [...] 03/23/2019 Assessment & Plan (10/15/2019 9:34 AM ASSET ANALYST): Pt was having right sided abdominal pain, nausea after meals, and frequent yellow BM's that resolved yesterday. She went to see PCP at [facility] and he rena labs. Unable to view these but will request these sent over. Pt says all symptoms have resolved except she is still seeing yellow stools. Possible patient passed stone again. Will review labs once we receive them from her PCP at [facility]. Assessment & Plan (03/23/2019 3:04 PM CDT): [...] Comments Blood Pressure 146/93 10/02/2021 9:37 PM ASSET ANALYST Pulse 83 10/02/2021 9:37 PM ASSET ANALYST Temperature 36.2 C (97.2 F) 10/02/2021 9:37 PM ASSET ANALYST Respiratory Rate 20 10/02/2021 9:37 PM ASSET ANALYST Oxygen Saturation 100% 10/02/2021 9:37 PM ASSET ANALYST Inhaled Oxygen Concentration - - Weight 80.7 kg (178 lb) 10/02/2021 9:37 PM ASSET ANALYST Height 162.6 cm (5' 4) 10/02/2021 9:37 PM ASSET ANALYST Body Mass Index 30.55 10/02/2021 9:37 PM ASSET ANALYST Plan of Treatment Not on file Insurance [facility] CHOICE OOS [facility] Advance Directives For more information, please contact: [phone] * Full Code (Latest Code Status on File) Date Activated Date Inactivated Comments 05/05/2018 3:48 PM 05/07/2018 2:34 PM * Full Code Date Activated Date Inactivated Comments 05/02/2018 7:18 PM 05/05/2018 3:48 PM Care Teams Robot Designer Relationship Specialty Start Date End Date Garrett Domingo MD [address] [place] [address] PCP - General Family Medicine 05/21/23
--- OUTSIDE RECORDS SUMMARY | 2025-05-12 11:35 | XMS_ITS | Clinical Summary ---
Author Organization [facility] al Address [address] [place] [address] Care Team Providers Care E Commerce Web Developer Name Role Phone Garrett Domingo MD Primary Care Provider [phone] Allergies Active Allergy Reactions Criticality Noted Date [...] 03/23/2019 Assessment & Plan (10/15/2019 9:34 AM TRIAGE REGISTERED NURSE): Pt was having right sided abdominal pain, nausea after meals, and frequent yellow BM's that resolved yesterday. She went to see PCP at [place] and he rena labs. Unable to view these but will request these sent over. Pt says all symptoms have resolved except she is still seeing yellow stools. Possible patient passed stone again. Will review labs once we receive them from her PCP at [place]. Assessment & Plan (03/23/2019 3:04 PM CDT): [...] Comments Blood Pressure 146/93 10/02/2021 9:37 PM TRIAGE REGISTERED NURSE Pulse 83 10/02/2021 9:37 PM TRIAGE REGISTERED NURSE Temperature 36.2 C (97.2 F) 10/02/2021 9:37 PM TRIAGE REGISTERED NURSE Respiratory Rate 20 10/02/2021 9:37 PM TRIAGE REGISTERED NURSE Oxygen Saturation 100% 10/02/2021 9:37 PM TRIAGE REGISTERED NURSE Inhaled Oxygen Concentration - - Weight 80.7 kg (178 lb) 10/02/2021 9:37 PM TRIAGE REGISTERED NURSE Height 162.6 cm (5' 4) 10/02/2021 9:37 PM TRIAGE REGISTERED NURSE Body Mass Index 30.55 10/02/2021 9:37 PM TRIAGE REGISTERED NURSE Plan of Treatment Not on file Insurance [facility] CHOICE OOS [facility] Advance Directives For more information, please contact: [phone] * Full Code (Latest Code Status on File) Date Activated Date Inactivated Comments 05/05/2018 3:48 PM 05/07/2018 2:34 PM * Full Code Date Activated Date Inactivated Comments 05/02/2018 7:18 PM 05/05/2018 3:48 PM Care Teams E Commerce Web Developer Relationship Specialty Start Date End Date Garrett Domingo MD [address] [place] [address] PCP - General Family Medicine 05/21/23
--- OUTSIDE RECORDS SUMMARY | 2025-05-12 11:35 | XMS_ITS | Continuity of Care Document ---
Author Organization [facility] Address [address] [place] [address] Phone Care Team Providers Care Medical Unit Secretary Name Role Phone Humberto Cortez MD Unavailable Unavailable Procedures Procedure Date Medical Testimony Deposition Independent Medical Examination BENJY Pre Payment Advance Directives Directive Yes / No Effective Date File Name No Information Encounters Encounter Description Practice Location Reason(s) For Visit Diagnoses Date Provider Providers Copied on Encounter [facility], [address], [id number], tel:[phone] [facility] No Information 9 Dana Paul. [address] [facility], [place] [address], [place], [place], [facility], [place]. tel: [phone] Independent Medical Examination BENJY [facility], [address] [place] [address], [id number], [place] tel:[phone] [facility] Maciel Venegas (chief complaint) No Information 9 Dana Paul. [address] [facility], [address], [place], [place], [facility], [place]. tel: [phone] [facility], [address] [place] [address], [id number], tel:[phone] [facility] No Information 9 Dana Paul. [address] [facility], [address], [place], [address], [place]. tel:[phone] Family History Family Member Type Diagnosis Age At Onset Mother Problem (finding) Cancer, unknown Payers Payer name Insurance type Covered green party ID Authoriza tion(s) No Information Social History Type Description Quantity Date Captured Comments Sex Female Smoking Status No Information Chief Complaint And Reason For Visit No Information Reason For Referral Reason For Referral No Information History Of Present Illness Encounter Date Complaint History Of Prese nt Illness [employer] Functional Status Date Functional Assessmen t No Information Instructions Date Instruction Additional Infor mation No Information Assessments Type Assessment Date No Information Patient Care Teams Name Effective Dates (start - stop) Status Members No Information
[2025-05-12 12:18] LABS: Hematocrit 41.3 % (37.0-47.0); Hemoglobin 13.7 g/dL (12.0-15.0); Mean Corpuscular HGB Conc 33.2 g/dl (32-36); Mean Corpuscular Hemoglobin 29.0 pg (26-34); Mean Corpuscular Volume 87.3 fl (80-100); Platelet Count Result 283 k/mm3 (150-375); Red Blood Count 4.73 M/mm3 (4.2-5.4); White Blood Count 6.1 K/mm3 (4.5-10.0)
[2025-05-12 12:42] LABS: Alanine Aminotransferase 24 U/L (6-35); Albumin Level 4.4 g/dL (3.5-5.1); Alkaline Phosphatase 50 U/L (38-126); Amylase 65 U/L (30-110); Anion Gap 8 mmol/L (4-12); Aspartate Amino Transferase 26 U/L (14-36); Bilirubin,Total 0.6 mg/dL (0.2-1.3); Blood Urea Nitrogen 9 mg/dL (7-17); Calcium 9.0 mg/dL (8.4-10.2); Carbon Dioxide 27 mmol/L (22-30); Chloride 105 mmol/L (98-107); Estimated Glomerular Filt Rate > 60; Glucose 94 mg/dL (65-110); Lipase 45 U/L (23-300); Potassium 3.8 mmol/L (3.4-5.0); Sodium 140 mmol/L (137-145); Total Protein 7.6 g/dL (6.3-8.2)
== END 2025-05-12 11:32 | disposition home or self-care (01) ==
LOC: ANHLAB 11:33
PROVIDERS: PCP Family Medicine; Visit Provider Nurse Practitioner
DX: R10.13 Epigastric pain (principal); R10.11 Right upper quadrant pain; R10.31 Right lower quadrant pain
CPT/HCPCS: 36415; 80053; 82150; 83690; 85027

== ENCOUNTER 2025-05-22 12:30 | Outpatient (CLI) | payer BC, SELFPAY ==
--- NOTE | ~2025-05-22 | CT_ITS ---
CT of the Abdomen and Pelvis: Indication: Abdominal pain Technique: 2.5 mm axial scans were obtained through the abdomen and pelvis following intravenous adm inistration of 100 cc of Omnipaque 350. Dose reduction technique was used on this scan by utilizing a utomated exposure control and iterative reconstruction technique. The dose-length product (DLP) was 4 50.32 mGy-cm. COMPARISON: 10/03/2021 Findings: Scans through the lung bases are unremarkable. The liver, spleen, pancreas, adrenals and kidneys are within normal limits. Cholecystectomy clips are present. No evidence of aortic aneurysm. No lymphadenopathy. No bowel obstruction or bowel wall thickening. There is no evidence to suggest acute appendicitis. Images through the pelvis were performed. Urinary bladder unremarkable. No pelvic mass evident aside from probable small fibroids. No ascites. Impression: No acute abnormality. Probable small fibroids. Reviewed, dictated and finalized at [facility]. Impression: No acute abnormality. Probable small fibroids.
--- OUTSIDE RECORDS SUMMARY | 2025-05-22 12:32 | XMS_ITS | Referral Summary ---
Author Organization [facility] al Address [address] [place] [address] Care Team Providers Care Cpht Name Role Phone Garrett Domingo MD Primary Care Provider [phone] Allergies Active Allergy Reactions Criticality Noted Date [...] 03/23/2019 Assessment & Plan (10/15/2019 9:34 AM CRUSHER SUPERVISOR): Pt was having right sided abdominal pain, nausea after meals, and frequent yellow BM's that resolved yesterday. She went to see PCP at [facility] and he rena labs. Unable to view these but will request these sent over. Pt says all symptoms have resolved except she is still seeing yellow stools. Possible patient passed stone again. Will review labs once we receive them from her PCP at [facility]. Assessment & Plan (03/23/2019 3:04 PM CDT): [...] Comments Blood Pressure 146/93 10/02/2021 9:37 PM CRUSHER SUPERVISOR Pulse 83 10/02/2021 9:37 PM CRUSHER SUPERVISOR Temperature 36.2 C (97.2 F) 10/02/2021 9:37 PM CRUSHER SUPERVISOR Respiratory Rate 20 10/02/2021 9:37 PM CRUSHER SUPERVISOR Oxygen Saturation 100% 10/02/2021 9:37 PM CRUSHER SUPERVISOR Inhaled Oxygen Concentration - - Weight 80.7 kg (178 lb) 10/02/2021 9:37 PM CRUSHER SUPERVISOR Height 162.6 cm (5' 4) 10/02/2021 9:37 PM CRUSHER SUPERVISOR Body Mass Index 30.55 10/02/2021 9:37 PM CRUSHER SUPERVISOR Plan of Treatment Not on file Insurance [facility] CHOICE OOS [facility] Advance Directives For more information, please contact: [phone] * Full Code (Latest Code Status on File) Date Activated Date Inactivated Comments 05/05/2018 3:48 PM 05/07/2018 2:34 PM * Full Code Date Activated Date Inactivated Comments 05/02/2018 7:18 PM 05/05/2018 3:48 PM Care Teams Cpht Relationship Specialty Start Date End Date Garrett Domingo MD [address] [place] [address] PCP - General Family Medicine 05/21/23
--- OUTSIDE RECORDS SUMMARY | 2025-05-22 12:32 | XMS_ITS | Clinical Summary ---
Author Organization [facility] al Address [address] [place] [address] Care Team Providers Care Ceramic Worker Name Role Phone Garrett Domingo MD Primary Care Provider [phone] Allergies Active Allergy Reactions Criticality Noted Date [...] 03/23/2019 Assessment & Plan (10/15/2019 9:34 AM MEDICAL IMAGING DIRECTOR): Pt was having right sided abdominal pain, nausea after meals, and frequent yellow BM's that resolved yesterday. She went to see PCP at [place] and he rena labs. Unable to view these but will request these sent over. Pt says all symptoms have resolved except she is still seeing yellow stools. Possible patient passed stone again. Will review labs once we receive them from her PCP at [place]. Assessment & Plan (03/23/2019 3:04 PM CDT): [...] Comments Blood Pressure 146/93 10/02/2021 9:37 PM MEDICAL IMAGING DIRECTOR Pulse 83 10/02/2021 9:37 PM MEDICAL IMAGING DIRECTOR Temperature 36.2 C (97.2 F) 10/02/2021 9:37 PM MEDICAL IMAGING DIRECTOR Respiratory Rate 20 10/02/2021 9:37 PM MEDICAL IMAGING DIRECTOR Oxygen Saturation 100% 10/02/2021 9:37 PM MEDICAL IMAGING DIRECTOR Inhaled Oxygen Concentration - - Weight 80.7 kg (178 lb) 10/02/2021 9:37 PM MEDICAL IMAGING DIRECTOR Height 162.6 cm (5' 4) 10/02/2021 9:37 PM MEDICAL IMAGING DIRECTOR Body Mass Index 30.55 10/02/2021 9:37 PM MEDICAL IMAGING DIRECTOR Plan of Treatment Not on file Insurance [facility] CHOICE OOS [employer] [facility] Advance Directives For more information, please contact: [phone] * Full Code (Latest Code Status on File) Date Activated Date Inactivated Comments 05/05/2018 3:48 PM 05/07/2018 2:34 PM * Full Code Date Activated Date Inactivated Comments 05/02/2018 7:18 PM 05/05/2018 3:48 PM Care Teams Ceramic Worker Relationship Specialty Start Date End Date Garrett Domingo MD [address] [place] [address] PCP - General Family Medicine 05/21/23
--- OUTSIDE RECORDS SUMMARY | 2025-05-22 12:32 | XMS_ITS | Continuity of Care Document ---
Author Organization [facility] Address [address] [place] [address] Phone Care Team Providers Care Merchandiser Retail Representative Name Role Phone Humberto Cortez MD Unavailable Unavailable Procedures Procedure Date Medical Testimony Deposition Independent Medical Examination BENJY Pre Payment Advance Directives Directive Yes / No Effective Date File Name No Information Encounters Encounter Description Practice Location Reason(s) For Visit Diagnoses Date Provider Providers Copied on Encounter [facility], [address], [id number], tel:[phone] [facility] No Information 9 Dana Paul. [address] [facility], [place] [address], [place], [place], [facility], [place]. tel: [phone] Independent Medical Examination BENJY [facility], [address] [place] [address], [id number], [place] tel:[phone] [facility] Maciel Venegas (chief complaint) No Information 9 Dana Paul. [address] [facility], [facility] [address], [place], [place], [facility], [place]. tel: [phone] [facility], [address] [place] [address], [id number], tel:[phone] [facility] No Information 9 Dana Paul. [address] [facility], [address], [place], [address], [place]. tel:[phone] Family History Family Member Type Diagnosis Age At Onset Mother Problem (finding) Cancer, unknown Payers Payer name Insurance type Covered democrat ID Authoriza tion(s) No Information Social History Type Description Quantity Date Captured Comments Sex Female Smoking Status No Information Chief Complaint And Reason For Visit No Information Reason For Referral Reason For Referral No Information History Of Present Illness Encounter Date Complaint History Of Prese nt Illness [employer] Functional Status Date Functional Assessmen t No Information Instructions Date Instruction Additional Infor mation No Information Assessments Type Assessment Date No Information Patient Care Teams Name Effective Dates (start - stop) Status Members No Information
--- OUTSIDE RECORDS SUMMARY | 2025-05-22 12:32 | XMS_ITS | Encounter Summary ---
Author Organization [facility] Healthcare Address [address] [place] [address] Care Team Providers Care Soils Technician Name Role Phone Conrado Woodruff MD Primary Care Provider [phone] Garrett Domingo MD Primary Care Provider [phone] Encounter Details Date Type Department Care Team [...] on filedocumented in this encounter Care Teams Soils Technician Relationship Specialty [place] [address] [place] [address] PCP - General 05/02/18 05/20/23 [place] [address] [place] [address] PCP - General Family Medicine 05/21/23 documented as of this encounter
== END 2025-05-22 12:31 | disposition home or self-care (01) ==
PROVIDERS: PCP Family Medicine; Visit Provider Nurse Practitioner
DX: R10.13 Epigastric pain (principal); R10.11 Right upper quadrant pain; R10.31 Right lower quadrant pain
CPT/HCPCS: 74177; Q9967

== ENCOUNTER 2025-07-21 01:13 | Day surgery (SDC) | payer BC, SELFPAY ==
--- OUTSIDE RECORDS SUMMARY | 2019-01-21 19:00 | XMS_ITS | Continuity of Care Document ---
Author Organization [facility] Address [address] [place] [address] Phone Care Team Providers Care Apartment Maintenance Worker Name Role Phone Humberto Cortez MD Unavailable Unavailable Procedures Procedure Date Medical Testimony Deposition Independent Medical Examination BENJY Pre Payment Advance Directives Directive Yes / No Effective Date File Name No Information Encounters Encounter Description Practice Location Reason(s) For Visit Diagnoses Date Provider Providers Copied on Encounter [facility], [address], [id number], tel:[phone] [facility] No Information 9 Dana Paul. [address] [facility], [place] [address], [place], [place], [facility], [place]. tel: [phone] Independent Medical Examination BENJY [facility], [address] [place] [address], [id number], [place] tel:[phone] [facility] Maciel Venegas (chief complaint) No Information 9 Dana Paul. [address] [facility], [facility] [address], [place], [place], [facility], [place]. tel: [phone] [facility], [address] [place] [address], [id number], tel:[phone] [facility] No Information 9 Dana Paul. [address] [facility], [address], [place], [address], [place]. tel:[phone] Family History Family Member Type Diagnosis Age At Onset Mother Problem (finding) Cancer, unknown Payers Payer name Insurance type Covered libertarian ID Authoriza tion(s) No Information Social History Type Description Quantity Date Captured Comments Sex Female Smoking Status No Information Chief Complaint And Reason For Visit No Information Reason For Referral Reason For Referral No Information History Of Present Illness Encounter Date Complaint History Of Prese nt Illness Educabilia Functional Status Date Functional Assessmen t No Information Instructions Date Instruction Additional Infor mation No Information Assessments Type Assessment Date No Information Patient Care Teams Name Effective Dates (start - stop) Status Members No Information
[2025-07-09 11:32] VITALS: BMI 32.5
--- OUTSIDE RECORDS SUMMARY | 2025-07-21 01:16 | XMS_ITS | Clinical Summary ---
Author Organization [facility] al Address [address] [place] [address] Care Team Providers Care Cable Former Name Role Phone Garrett Domingo MD Primary Care Provider [phone] Allergies Active Allergy Reactions Criticality Noted Date [...] 03/23/2019 Assessment & Plan (10/15/2019 9:34 AM CLIENT SERVER DEVELOPER): Pt was having right sided abdominal pain, nausea after meals, and frequent yellow BM's that resolved yesterday. She went to see PCP at [place] and he rena labs. Unable to view these but will request these sent over. Pt says all symptoms have resolved except she is still seeing yellow stools. Possible patient passed stone again. Will review labs once we receive them from her PCP at [place]. Assessment & Plan (03/23/2019 3:04 PM CDT): [...] Comments Blood Pressure 146/93 10/02/2021 9:37 PM CLIENT SERVER DEVELOPER Pulse 83 10/02/2021 9:37 PM CLIENT SERVER DEVELOPER Temperature 36.2 C (97.2 F) 10/02/2021 9:37 PM CLIENT SERVER DEVELOPER Respiratory Rate 20 10/02/2021 9:37 PM CLIENT SERVER DEVELOPER Oxygen Saturation 100% 10/02/2021 9:37 PM CLIENT SERVER DEVELOPER Inhaled Oxygen Concentration - - Weight 80.7 kg (178 lb) 10/02/2021 9:37 PM CLIENT SERVER DEVELOPER Height 162.6 cm (5' 4) 10/02/2021 9:37 PM CLIENT SERVER DEVELOPER Body Mass Index 30.55 10/02/2021 9:37 PM CLIENT SERVER DEVELOPER Plan of Treatment Not on file Insurance [facility] CHOICE OOS [employer] [facility] Advance Directives For more information, please contact: [phone] * Full Code (Latest Code Status on File) Date Activated Date Inactivated Comments 05/05/2018 3:48 PM 05/07/2018 2:34 PM * Full Code Date Activated Date Inactivated Comments 05/02/2018 7:18 PM 05/05/2018 3:48 PM Care Teams Cable Former Relationship Specialty Start Date End Date Garrett Domingo MD [address] [place] [address] PCP - General Family Medicine 05/21/23
--- OUTSIDE RECORDS SUMMARY | 2025-07-21 01:16 | XMS_ITS | Encounter Summary ---
Author Organization [facility] Healthcare Address [address] [place] [address] Care Team Providers Care Consulting Senior Practice Director Name Role Phone Conrado Woodruff MD Primary Care Provider [phone] Garrett Domingo MD Primary Care Provider [phone] Encounter Details Date Type Department Care Team [...] on filedocumented in this encounter Care Teams Consulting Senior Practice Director Relationship Specialty [place] [address] [place] [address] PCP - General 05/02/18 05/20/23 [place] [address] [place] [address] PCP - General Family Medicine 05/21/23 documented as of this encounter
[2025-07-21 06:38] VITALS: BP 126/78; PULSE 66; RESP 16; TEMP 36.8; O2SAT 100; BMI 32.1
[2025-07-21 06:53] LABS: BEDSIDEPREGUCG Negative (Negative)
[2025-07-21] MEDS: LACTATED RINGERS 1,000 ML 150 ML IV CONT (06:56)
[2025-07-21] MEDS: SIMETHICONE ORAL SUSPENSION 20 MG/0.3 ML 30 ML BOTTLE 1.8 ML PO (06:58)
--- NOTE | 2025-07-21 07:38 | P.PNAN_ITS ---
Anes - Initial Pre Proc Eval Procedure: Operation Date: 07/21/25 08:00 Proposed Procedures p Esophagogastroduodenoscopy - Oswaldo Nino MD Date/Time: 07/21/25 07:38 Surgeon: Oswaldo Nino MD Pre Op Diagnosis: Right upper quadrant pain, Epigastric pain Patient Data Age: 50 Gender: F Height: 1.63 m Weight: 85 kg Last Vital Signs Temp 98.2 F 07/21/25 06:38 Pulse 66 07/21/25 06:38 Resp 16 07/21/25 06:38 BP 126/78 07/21/25 06:38 Pulse Ox 100 07/21/25 06:38 O2 Del Method Room Air 07/21/25 06:38 Allergies Allergy/AdvReac Type Severity Reaction Status Date / Time clindamycin AdvReac Unconscious Verified 07/21/25 06:46 Home Medications ?Medication ?Instructions ?Recorded ?Confirmed ?Type pantoprazole 40 mg tablet,delayed 40 mg PO QAM #90 tab s 06/23/25 07/21/25 Rx release Laboratory Tests 07/21/25 06:52 POC Urine HCG, Qual Negative (Negative) Patient hx anesthesia problems: none Family hx anesthesia problems: none Results Review: All pre-operative results and documents have been reviewed as part of the pre- operative evaluation. [facility] Past Medical History Medical History Gastritis Constipation RLQ abdominal pain Tobacco abuse Obesity (BMI 30-39.9) Lesion of right ovary Gall stone GERD (gastroesophageal reflux disease) Pancreatitis Surgical History Surgical History S/P cholecystectomy Family History Family History Mother Lung cancer Other Diabetes mellitus nieces Social History Social History Social History: Patient lives at home with her and 1 child who is a girl. Patient works for [employer] and has 3 dogs as pets. Patient's bow will be her surrogate. Patient would like to be a full code. Smoking status: Former smoker Tobacco type: e-cigarettes/vaping Second hand tobacco smoke exposure: No Alcohol intake: current Drinks per week: 2 Alcohol use details: on occasion Substance use: never Substance use type: does not use Do You Feel Safe in your Home?: Yes Lack of Transportation: No Lack of Food: Never True Current Housing: I Have Housing Concerned About Future Housing: No Difficulty Paying Gas/Electric Bills: No Difficulty Paying for Meds: No Currently Unemployed: No Education: High School Diploma/GED Difficulty w/ Childcare or Family Care: No Living arrangements: with family Additional living arrangements comments: Occupation/Education: occupation Additional occupation/education comments: [employer] Gender identity (if verbalized by the patient): Female Sexual Orientation (if Verbalized by the Patient): Straight or Heterosexual Spiritual care concerns: No Agree to blood products: Yes Anes - Eval Final PreProcedure Day of Procedure 07/21/25 07:38 Patient weight: obese Lungs: normal air movement Airway: Mallampati scale class II Neurological: alert and oriented Last oral intake: >/= 8 hours ASA classification: II Emergent: no Anesthetic plan: proceed Anesthesia type and monitoring: general GIVS and standard monitoring Results Review: All pre-operative results and documents have been reviewed as part of the pre- operative evaluation. GERD, ex smoker, quit 2009, but currently vapes and did this am. Informed Consent: The patient's anesthetic plan and its attendant risks and benefits were discussed with the patient/family/POA. Questions were solicited and answers provided to the satisfaction of the patient/family/POA.
--- NOTE | 2025-07-21 08:03 | P.HP_ITS ---
H&P: HPI History of Present Illness Date/Time: 07/21/25 08:03 Chief Complaint: Abdominal pain Narrative: this patient had a previous cholecystectomy years ago and gallstone pancreatitis. She states that after that she has been complaining of intermittent epigastric /right upper quadrant pain. He is now referred for EGD. There is a history of gastritis, H pylori negative. Review of Systems Review of Systems: All systems reviewed & are unremarkable except as noted in HPI and below PMFSH Past Medical History Medical History Gastritis Constipation RLQ abdominal pain Tobacco abuse Obesity (BMI 30-39.9) Lesion of right ovary Gall stone GERD (gastroesophageal reflux disease) Pancreatitis Surgical History Surgical History S/P cholecystectomy Family History Family History Mother Lung cancer Other Diabetes mellitus nieces Social History Social History Social History: Patient lives at home with her and 1 child who is a girl. Patient works for [employer] and has 3 dogs as pets. Patient's graham will be her surrogate. Patient would like to be a full code. Smoking status: Former smoker Tobacco type: e-cigarettes/vaping Second hand tobacco smoke exposure: No Alcohol intake: current Drinks per week: 2 Alcohol use details: on occasion Substance use: never Substance use type: does not use Do You Feel Safe in your Home?: Yes Lack of Transportation: No Lack of Food: Never True Current Housing: I Have Housing Concerned About Future Housing: No Difficulty Paying Gas/Electric Bills: No Difficulty Paying for Meds: No Currently Unemployed: No Education: High School Diploma/GED Difficulty w/ Childcare or Family Care: No Living arrangements: with family Additional living arrangements comments: Occupation/Education: occupation Additional occupation/education comments: [employer] Gender identity (if verbalized by the patient): Female Sexual Orientation (if Verbalized by the Patient): Straight or Heterosexual Spiritual care concerns: No Agree to blood products: Yes Meds Home Medications and Allergies Home Medications ?Medication ?Instructions ?Recorded ?Confirmed ?Type pantoprazole 40 mg tablet,delayed 40 mg PO QAM #90 tab s 06/23/25 07/21/25 Rx release Allergies Allergy/AdvReac Type Severity Reaction Status Date / Time clindamycin AdvReac Unconscious Verified 07/21/25 06:46 Vital Signs Vital Signs - 24 hr 07/21/25 06:38 Temperature 98.2 F Pulse Rate 66 Respiratory Rate 16 Blood Pressure 126/78 Pulse Oximetry 100 Oxygen Delivery Room Air Exam Const: General: cooperative and healthy appearing Resp: Effort & Inspection: normal respiratory effort and able to speak in complete sentences Auscultation: clear to auscultation bilaterally Cardio: Rate: regular rate Rhythm: regular rhythm GI: Inspection: normal to inspection GI Palp: No No hepatosplenomegaly present Auscultation: normal bowel sounds Rectal Exam: deferred Skin: General skin exam: normal color Psych: Appearance: grossly normal Mental Status: mental status grossly normal Assessment and Plan Assessment and plan (1) Epigastric pain: Code(s): R10.13 - Epigastric pain Status: Acute Assessment and Plan: The patient is deemed a good candidate for the procedure. Consent signed. Will proceed.
--- NOTE | 2025-07-21 08:19 | S_PTH ---
PATIENT: Ty Mc LOC: [place] U#:[id number] AGE/SX: 50/F ROOM: RE07/21/[address]: Oswaldo Nino MD : 1975 BED: DIS: 07/21/2025 SPEC #: [id number] RECD: 07/21/25 10:06 STATUS: MYRTLE RECharly #: [id number] KAREN: 07/21/25 08:[address]: Oswaldo Nino DEPT: [facility] Surgical RECD BY: Deb Parker ENTERED: 07/21/25 10:07 SP TYPE: Surgical OTHR DR: Conrado WoodruffMD Tissues: A - Gastric Biopsy B - Gastric Biopsy Procedures: Hematoxylin and Eosin Stain Gross and Microscopic Level 4
[2025-07-21 08:21] VITALS: BP 82/61; PULSE 67; RESP 19; O2SAT 100
[2025-07-21 08:31] VITALS: BP 126/73; PULSE 60; RESP 21; O2SAT 100
[2025-07-21 08:41] VITALS: BP 124/71; PULSE 53; RESP 22; O2SAT 100
== END 2025-07-21 08:51 | disposition home or self-care (01) ==
PROVIDERS: PCP Family Medicine; Referring Provider Nurse Practitioner; Visit Provider Internal Medicine Gastroenterology
PROC: 0DJ08ZZ Inspection of Upper Intestinal Tract, Via Natural or Artificial Opening Endoscopic (ICD-10-PCS; CPT 43239; principal; 2025-07-21 08:00)
DX: K21.9 Gastro-esophageal reflux disease without esophagitis (principal); K29.30 Chronic superficial gastritis without bleeding; F17.290 Nicotine dependence, other tobacco product, uncomplicated; E66.9 Obesity, unspecified; Z68.32 Body mass index [BMI] 32.0-32.9, adult; Z90.49 Acquired absence of other specified parts of digestive tract; Z87.19 Personal history of other diseases of the digestive system; Z80.1 Family history of malignant neoplasm of trachea, bronchus and lung
CPT/HCPCS: 43239; 88305; J2003; J2704; J7120

== ENCOUNTER 2025-09-21 11:55 | Outpatient (CLI) | payer BC, SELFPAY ==
[2025-09-22 07:09] LABS: FSH 31.5 mIU/mL (.)
[2025-09-24 22:08] LABS: Estradiol, Sensitive 31.2 pg/mL (.)
== END 2025-09-21 11:56 | disposition home or self-care (01) ==
LOC: ANHLAB 11:57
PROVIDERS: PCP Family Medicine; Visit Provider Obstetrics & Gynecology
DX: N95.1 Menopausal and female climacteric states (principal)
CPT/HCPCS: 82670; 83001